=== PATIENT | male | born 1990 | race Caucasian/White ===

== ENCOUNTER 2018-10-10 19:25 | Emergency (ER) | payer MEDICAID, OTHER ==
[~2018-10-10] VITALS: Ht 180.3 cm; Wt 99.8 kg
--- OUTSIDE RECORDS SUMMARY | 2018-10-10 19:30 | XMS REPORT | Referral Summary ---
Author Author [facility] Organization [facility] Address Unknown Phone Unavailable Care Team Providers Care Vp Securities Name Role Phone [facility] PCP Unavailable Encounter AMAURY [id number] Date(s): 07/12/17 - 07/14/17 [facility] [address] [place] [address] Encounter Diagnosis Partial symptomatic epilepsy with complex partial seizures, not intractable, wit hout status epilepticus (Discharge Diagnosis) - 07/12/17 Dizziness (Discharge Diagnosis) - 07/12/17 Headache (Discharge Diagnosis) - 07/12/17 Fatigue (Discharge Diagnosis) - 07/12/17 Discharge Disposition: 01-Home or Self Care Attending Physician: Jesse Page MD Admitting Physician: Jesse Page MD Vital Signs Most recent to 1 oldest [Reference Range]: Temperature Oral 36.9 degC [35.8-37.3 degC] (07/14/17 12:06 PM) Peripheral Pulse 61 bpm Rate [60-100 bpm] (07/13/17 8:11 AM) Heart Rate Monitored 91 bpm [60-100 bpm] (07/14/17 12:06 PM) Respiratory Rate 20 br/min [14-20 br/min] (07/14/17 12:06 PM) Blood Pressure 147/73 mmHg [90-140/60-90 mmHg] *HI* (07/14/17 9:11 AM) SpO2 98 % (07/14/17 12:06 PM) Remote Telemetry Ongoing (07/14/17 9:11 AM) Problem List Condition Effective Dates Status Health Status Informant At risk for Active injury(Confirmed)1, 2 Headache(Confirmed) Resolved Partial symptomatic Active epilepsy with complex partial seizures, not intractable, without status epilepticus(Confirme d) Tobacco Active patient user(Confirmed) 1ongoing seizure care and eval 2Problem added automatically by system based on initiation of Risk for Injury Plan of Care Allergies, Adverse Reactions, Alerts Substance Reaction Severity Status fosphenytoin1 Medium Active 1Itching all over, "out of it" all night Medications Aleve 220 mg oral tablet 440 mg 2 tabs, Oral, qPM, 0 Refill(s) Start Date: 07/12/17 Status: Ordered Results Hematology Most recent to 1 oldest [Reference Range]: WBC [4.8-10.8 8.5 10*3/uL 10*3/uL] (07/13/17 7:07 AM) RBC [4.60-6.20] 5.66 (07/13/17 7:07 AM) Hgb [14.0-18.0 16.7 gm/dL gm/dL] (07/13/17 7:07 AM) Hct [42.0-52.0 %] 47.7 % (07/13/17 7:07 AM) MCV [82.0-99.0 fL] 84.3 fL (07/13/17 7:07 AM) MCH [27.0-32.0 pg] 29.5 pg (07/13/17 7:07 AM) MCHC [32.0-36.0 35.0 gm/dL gm/dL] (07/13/17 7:07 AM) RDW [11.5-14.5 %] 13.2 % (07/13/17 7:07 AM) Platelet [150-400 177 10*3/uL 10*3/uL] (07/13/17 7:07 AM) MPV [9.4-12.3 fL] 10.5 fL (07/13/17 7:07 AM) Immature 0.6 % Granulocytes (07/13/17 7:07 AM) [0.0-1.0 %] Neutrophils [51-75 46 % %] *LOW* (07/13/17 7:07 AM) Lymphocytes [20-46 33 % %] (07/13/17 7:07 AM) Monocytes [4-11 %] 9 % (07/13/17 7:07 AM) Eosinophils [0-4 %] 11 % *HI* (07/13/17 7:07 AM) Basophils [0-2 %] 1 % (07/13/17 7:07 AM) Neutro Absolute 3.89 [1.90-7.00] (07/13/17 7:07 AM) Lymph Absolute 2.82 [0.80-3.30] (07/13/17 7:07 AM) [place] Absolute 0.76 [0.30-1.00] (07/13/17 7:07 AM) Eos Absolute 0.95 [0.00-0.50] *HI* (07/13/17 7:07 AM) Baso Absolute 0.07 [0.00-0.20] (07/13/17 7:07 AM) Nucleated RBC 0.0 /100 WBC Automated [0 /100 (07/13/17 7:07 AM) WBC] Chemistry Most recent to 1 oldest [Reference Range]: Sodium Lvl [136-144 139 mEq/L mEq/L] (07/13/17 7:07 AM) Potassium Lvl 4.0 mEq/L [3.6-5.1 mEq/L] (07/13/17 7:07 AM) Chloride [99-109 106 mEq/L mEq/L] (07/13/17 7:07 AM) CO2 [22-32 mEq/L] 22 mEq/L (07/13/17 7:07 AM) AGAP [3-20 mEq/L] 11 mEq/L (07/13/17 7:07 AM) BUN [4-20 mg/dL] 10 mg/dL (07/13/17 7:07 AM) Glucose Lvl [70-100 111 mg/dL mg/dL] *HI* (07/13/17 7:07 AM) Creatinine Lvl 0.81 mg/dL [0.64-1.27 mg/dL] (07/13/17 7:07 AM) eGFR [>60 mL/min] >60 mL/min 1 (07/13/17 7:07 AM) Calcium Lvl 8.8 mg/dL [8.6-10.0 mg/dL] (07/13/17 7:07 AM) Albumin Lvl [3.5-4.8 3.6 gm/dL gm/dL] (07/13/17 7:07 AM) Total Protein 5.7 gm/dL [6.1-7.9 gm/dL] *LOW* (07/13/17 7:07 AM) Globulin [1.9-4.3 2.1 gm/dL gm/dL] (07/13/17 7:07 AM) ALT [17-63 U/L] 25 U/L (07/13/17 7:07 AM) AST [15-41 U/L] 19 U/L (07/13/17 7:07 AM) Alk Phos [26-104 69 U/L U/L] (07/13/17 7:07 AM) Bili Total [0.2-1.2 0.9 mg/dL 2 mg/dL] (07/13/17 7:07 AM) TSH [0.35-5.50 0.99 mcIU/mL mcIU/mL] (07/13/17 7:07 AM) 1Result Comment: Multiply eGFR results by 1.21 for race. 2Result Comment: Naproxen, specifically the metabolite O-desmethylnaproxen, may cause spurious elevation in Total Bilirubin levels. Immunizations Given and Recorded Vaccine Date Status Refusal Reason varicella virus vaccine 01/26/07 Given varicella virus vaccine 04/12/98 Given meningococcal conjugate vaccine 01/26/07 Given hepatitis A pediatric vaccine 01/26/07 Given tetanus/diphth/pertuss (Tdap) adult/adol 10/15/04 Recorded hepatitis B pediatric vaccine 07/19/96 Given hepatitis B pediatric vaccine 02/25/96 Given hepatitis B pediatric vaccine 01/20/96 Given poliovirus vaccine, inactivated 11/11/95 Given poliovirus vaccine, inactivated 04/17/93 Given poliovirus vaccine, inactivated 02/12/92 Given poliovirus vaccine, inactivated 91 Given measles/mumps/rubella virus vaccine 11/11/95 Given measles/mumps/rubella virus vaccine 01/10/93 Given diphtheria/pertussis, acel/tetanus ped 11/11/95 Given diphtheria/pertussis, acel/tetanus ped 04/18/93 Given diphtheria/pertussis, acel/tetanus ped 04/23/92 Given diphtheria/pertussis, acel/tetanus ped 02/12/92 Given diphtheria/pertussis, acel/tetanus ped 91 Given haemophilus b conjugate (HbOC) vaccine 04/18/93 Given haemophilus b conjugate (HbOC) vaccine 04/23/92 Given haemophilus b conjugate (HbOC) vaccine 02/12/92 Given haemophilus b conjugate (HbOC) vaccine 91 Given Procedures Procedure Date Related Diagnosis Body Site Status Surgery rt foot1 2009 Completed Tonsillectomy 1998 Completed 1"bone spur removal" Social History Social History Type Response Smoking Status Current every day smoker; Type: Cigarettes entered on: 05/11/14 Assessment and Plan No data available for this section
--- OUTSIDE RECORDS SUMMARY | 2018-10-10 19:30 | XMS REPORT | Referral Summary ---
Author Author [facility] Organization [facility] Address Unknown Phone Unavailable Care Team Providers Care High School Computer Science Teacher Name Role Phone No PCP, Pt States PCP Encounter VC Date(s): 11/09/17 - 11/10/17 [facility] [address] [place] [address] [phone] Encounter Diagnosis Hearing loss of right ear due to cerumen impaction (Discharge Diagnosis) - 11/10/17 Otitis externa of right ear (Discharge Diagnosis) - 11/10/17 Discharge Disposition: 01-Home or Self Care Attending Physician: Kemal Garcia MD Admitting Physician: Kemal Garcia MD Vital Signs Most recent to 1 oldest [Reference Range]: Temperature Oral 36.7 degC [35.8-37.3 degC] (11/09/17 11:17 PM) Peripheral Pulse 84 bpm Rate [60-100 bpm] (11/10/17 12:54 AM) Respiratory Rate 17 br/min [14-20 br/min] (11/10/17 12:54 AM) Blood Pressure 126/88 mmHg [90-140/60-90 mmHg] (11/10/17 12:54 AM) SpO2 98 % (11/10/17 12:54 AM) Problem List Condition Effective Dates Status Health Status Informant At risk for Active injury(Confirmed)1, 2 Headache(Confirmed) Resolved Partial symptomatic Active epilepsy with complex partial seizures, not intractable, without status epilepticus(Confirme d) Tobacco Active patient user(Confirmed) 1ongoing seizure care and eval 2Problem added automatically by system based on initiation of Risk for Injury Plan of Care Allergies, Adverse Reactions, Alerts No Known Allergies Medications Aleve 220 mg oral tablet 440 mg 2 tabs, Oral, qPM, 0 Refill(s) Start Date: 07/12/17 Status: Ordered Results No data available for this section Immunizations Given and Recorded Vaccine Date Status [...]
--- OUTSIDE RECORDS SUMMARY | 2018-10-10 19:31 | XMS REPORT ---
Author Author Augusto Corley Organization [facility] Address [address] [place] [address] Care Team Providers Care Maintenance Pipefitter Name Role Phone Augusto Corley Unavailable PROBLEMS Type Condition ICD9-CM Code [id number] Code Onset Dates Condition Status SNOMED Code Problem Periodic limb movements of sleep G47.61 Active 218167387 Problem CARE LEVEL 3 CARE3 Active 800666287 Problem Dietary counseling and surveillance Z71.3 Active 989553004 Problem Dietary counseling Z71.3 Active 608790755 Problem Obesity (BMI 30.0-34.9) E66.9 Active 818187112867481 Problem Needs smoking cessation education F17.200 Active 947359566 Problem Tobacco use Z72.0 Active 445354588 Problem Prehypertension R03.0 Active 147322642 ALLERGIES No Known Allergies ENCOUNTERS Encounter Location Date Diagnosis [address] [id number] Apr, Prehypertension R03.0 ; Needs smoking cessation education F17.200 ; Dietary counseling and surveillance Z71.3 and Seizure-like activity R56.[address] [id number] Apr, [address] [id number] Apr, [address] [id number] Apr, Syncope and collapse R55 [address] [id number] Mar, [address] [id number] Mar, [address] [id number] Mar, Syncope and collapse R55 ; Dietary counseling Z71.3 ; Tobacco use Z72.0 and Prehypertension R03.[address] [id number] Mar, [facility] [address], [place] [id number] Feb, Dietary counseling Z71.3 ; Periodic limb movements of sleep G47.61 ; Needs smoking cessation education F17.200 ; Onychomycosis B35.1 and Pre-hypertension R03.0 [facility] [address], [place] [id number] Jan, Dietary counseling Z71.3 ; Periodic limb movements of sleep G47.61 and Elevated blood pressure reading R03.0 IMMUNIZATIONS No Known Immunizations SOCIAL HISTORY Never Assessed REASON FOR VISIT f/u EEG/MRI, request no med student, Room 27 SB PLAN OF CARE Activity Details Follow Up prn Reason:null VITAL SIGNS Temperature 98.4 degrees Fahrenheit 2017-05-11 Weight 224 lbs 2017-05-11 Height 68.75 in 2017-05-11 BMI 33.32 kg/m2 2017-05-11 Heart Rate 89 /min 2017-05-11 Blood pressure systolic 130 mm Hg 2017-05-11 Blood pressure diastolic 74 mm Hg 2017-05-11 MEDICATIONS No Known Medications RESULTS No Results PROCEDURES No Known procedures INSTRUCTIONS MEDICATIONS ADMINISTERED No Known Medications MEDICAL (GENERAL) HISTORY Type Description Date Surgical History Bone spur removal-right foot Surgical History Tonsillectomy Surgical History Bilateral tympanostomies
--- OUTSIDE RECORDS SUMMARY | 2018-10-10 19:31 | XMS REPORT ---
Author Author Augusto Corley [facility] Address [address] [place] [address] Care Team Providers Care Mechanical Operator Name Role Phone Augusto Corley Unavailable PROBLEMS Type Condition ICD9-CM Code IVK48-AJ Code Onset Dates Condition Status SNOMED Code Problem CARE LEVEL 3 CARE3 Active 011780683 Problem Dietary counseling Z71.3 Active 361835389 Problem Tobacco use Z72.0 Active 482022693 Problem Needs smoking cessation education F17.200 Active 426645572 Problem Periodic limb movements of sleep G47.61 Active 549517589 Problem Prehypertension R03.0 Active 430836995 Problem Obesity (BMI 30.0-34.9) E66.9 Active 657457965453979 ALLERGIES No Information SOCIAL HISTORY Never Assessed PLAN OF CARE VITAL SIGNS MEDICATIONS Unknown Medications RESULTS No Results PROCEDURES No Known procedures IMMUNIZATIONS No Known Immunizations MEDICAL (GENERAL) HISTORY Type Description Date Surgical History Bone spur removal-right foot Surgical History Tonsillectomy Surgical History Bilateral tympanostomies
--- OUTSIDE RECORDS SUMMARY | 2018-10-10 19:31 | XMS REPORT ---
Author Author Augusto Corley Organization [facility] Address [address] [place] [address] Care Team Providers Care Nuclear Pharmacist Name Role Phone Augusto Corley Unavailable PROBLEMS Type Condition ICD9-CM Code OFK45-VB Code Onset Dates Condition Status SNOMED Code Problem CARE LEVEL 3 CARE3 Active 397069678 Problem Needs smoking cessation education F17.200 Active 386646034 Problem Periodic limb movements of sleep G47.61 Active 072534717 Problem Seasonal allergies J30.2 Active 102169423 Problem Dietary counseling and surveillance Z71.3 Active 719841281 Problem Prehypertension R03.0 Active 890181228 Problem Obesity (BMI 30.0-34.9) E66.9 Active 966565112788917 Problem Dietary counseling Z71.3 Active 641865468 Problem Tobacco use Z72.0 Active 255124807 ALLERGIES No Information ENCOUNTERS Encounter Location Date Diagnosis [address] [id number] Oct, [address] [id number] Oct, [address] [id number] Oct, [address] [id number] Oct, Seasonal allergies J30.[address] [id number] Oct, Dietary counseling Z71.3 ; Seasonal allergies J30.2 ; Impacted cerumen of right ear H61.21 and Tobacco use Z72.[address] [id number] July, [address] [id number] Apr, Prehypertension R03.0 ; Needs smoking cessation education F17.200 ; Dietary counseling and surveillance Z71.3 and Seizure-like activity R56.[address] [id number] 14 Apr, [address] [id number] Apr, [address] [id number] Apr, Syncope and collapse R55 [address] [id number] Mar, [address] [id number] Mar, [address] [id number] Mar, Syncope and collapse R55 ; Dietary counseling Z71.3 ; Tobacco use Z72.0 and Prehypertension R03.[address] [id number] Mar, [address] [id number] Feb, Dietary counseling Z71.3 ; Periodic limb movements of sleep G47.61 ; Needs smoking cessation education F17.200 ; Onychomycosis B35.1 and Pre-hypertension R03.[address] [id number] Jan, Dietary counseling Z71.3 ; Periodic limb movements of sleep G47.61 and Elevated blood pressure reading R03.0 IMMUNIZATIONS No Known Immunizations SOCIAL HISTORY Never Assessed REASON FOR VISIT PLAN OF CARE VITAL SIGNS MEDICATIONS Unknown Medications RESULTS No Results PROCEDURES No Known procedures INSTRUCTIONS MEDICATIONS ADMINISTERED No Known Medications MEDICAL (GENERAL) HISTORY Type Description Date Surgical History Bone spur removal-right foot Surgical History Tonsillectomy Surgical History Bilateral tympanostomies
--- OUTSIDE RECORDS SUMMARY | 2018-10-10 19:31 | XMS REPORT ---
Author Author Zena Olivier Organization [facility] Address [address] [place] [address] Care Team Providers Care Research And Evaluation Analyst Name Role Phone Zena Olivier Unavailable PROBLEMS Type Condition ICD9-CM Code LAN38-IA Code Onset Dates Condition Status SNOMED Code Problem Obesity (BMI 30.0-34.9) E66.9 Active 896491942513523 Problem Needs smoking cessation education F17.200 Active 650986188 Problem Periodic limb movements of sleep G47.61 Active 169569765 Problem CARE LEVEL 3 CARE3 Active 224755748 ALLERGIES No Information SOCIAL HISTORY Never Assessed PLAN OF CARE VITAL SIGNS MEDICATIONS No Known Medications RESULTS No Results PROCEDURES No Known procedures IMMUNIZATIONS No Known Immunizations MEDICAL (GENERAL) HISTORY Type Description Date Surgical History Bone spur removal-right foot Surgical History Tonsillectomy Surgical History Bilateral tympanostomies
--- OUTSIDE RECORDS SUMMARY | 2018-10-10 19:31 | XMS REPORT ---
Author Author Augusto Corley Organization [facility] Address [address] [place] [address] Care Team Providers Care Nicker Name Role Phone Augusto Corley Unavailable PROBLEMS Type Condition ICD9-CM Code CHS05-DX Code Onset Dates Condition Status SNOMED Code Problem CARE LEVEL 3 CARE3 Active 643090773 Problem Dietary counseling Z71.3 Active 156298988 Problem Tobacco use Z72.0 Active 440550922 Problem Needs smoking cessation education F17.200 Active 617485286 Problem Periodic limb movements of sleep G47.61 Active 820445526 Problem Prehypertension R03.0 Active 586208878 Problem Obesity (BMI 30.0-34.9) E66.9 Active 745185044250277 ALLERGIES No Information ENCOUNTERS Encounter Location Date Diagnosis [address] [id number] Apr, [address] [id number] Apr, [address] [id number] Apr, [address] [id number] Apr, Syncope and collapse R55 [address] [id number] Mar, [address] [id number] Mar, [address] [id number] Mar, Syncope and collapse R55 ; Dietary counseling Z71.3 ; Tobacco use Z72.0 and Prehypertension R03.[address] [id number] Mar, [address] [id number] Feb, Dietary counseling Z71.3 ; Periodic limb movements of sleep G47.61 ; Needs smoking cessation education F17.200 ; Onychomycosis B35.1 and Pre-hypertension R03.[address] [id number] Jan, Dietary counseling Z71.3 ; Periodic limb movements of sleep G47.61 and Elevated blood pressure reading R03.0 IMMUNIZATIONS No Known Immunizations SOCIAL HISTORY Never Assessed REASON FOR VISIT returned call--Patient Concern PLAN OF CARE VITAL SIGNS MEDICATIONS Unknown Medications RESULTS No Results PROCEDURES No Known procedures INSTRUCTIONS MEDICATIONS ADMINISTERED No Known Medications MEDICAL (GENERAL) HISTORY Type Description Date Surgical History Bone spur removal-right foot Surgical History Tonsillectomy Surgical History Bilateral tympanostomies
--- OUTSIDE RECORDS SUMMARY | 2018-10-10 19:31 | XMS REPORT ---
Author Author Augusto Corley Organization [facility] Address [address] [place] [address] Care Team Providers Care Child Adolescent Psychiatrist Name Role Phone Augusto Corley Unavailable PROBLEMS Type Condition ICD9-CM Code MQJ79-FO Code Onset Dates Condition Status SNOMED Code Problem CARE LEVEL 3 CARE3 Active 316389148 Problem Needs smoking cessation education F17.200 Active 609968883 Problem Periodic limb movements of sleep G47.61 Active 579566233 Problem Seasonal allergies J30.2 Active 392728559 Problem Dietary counseling and surveillance Z71.3 Active 177253601 Problem Prehypertension R03.0 Active 073017899 Problem Obesity (BMI 30.0-34.9) E66.9 Active 187415886049359 Problem Dietary counseling Z71.3 Active 876707456 Problem Tobacco use Z72.0 Active 702427355 ALLERGIES No Information ENCOUNTERS Encounter Location Date Diagnosis [address] [id number] Oct, [address] [id number] Oct, Seasonal allergies J30.[address] [id number] Oct, Dietary counseling Z71.3 ; Seasonal allergies J30.2 ; Impacted cerumen of right ear H61.21 and Tobacco use Z72.[address] [id number] July, [address] [id number] Apr, Prehypertension R03.0 ; Needs smoking cessation education F17.200 ; Dietary counseling and surveillance Z71.3 and Seizure-like activity R56.[address] [id number] Apr, [address] [id number] Apr, [address] [id number] Apr, Syncope and collapse R55 [address] [id number] Mar, [address] [id number] Mar, [address] [id number] Mar, Syncope and collapse R55 ; Dietary counseling Z71.3 ; Tobacco use Z72.0 and Prehypertension R03.[address] [id number] Mar, [address] [id number] Feb, Dietary counseling Z71.3 ; Periodic limb movements of sleep G47.61 ; Needs smoking cessation education F17.200 ; Onychomycosis B35.1 and Pre-hypertension R03.[address] [id number] Jan, Dietary counseling Z71.3 ; Periodic limb movements of sleep G47.61 and Elevated blood pressure reading R03.0 IMMUNIZATIONS No Known Immunizations SOCIAL HISTORY Never Assessed REASON FOR VISIT Pharmacy clarification PLAN OF CARE VITAL SIGNS MEDICATIONS Medication Instructions Dosage Frequency Start Date End Date Duration Status Flonase 50 MCG/ACT Nasally daily 1 puff in each nostril 24h Oct, 30 day(s) Active RESULTS No Results PROCEDURES No Known procedures INSTRUCTIONS MEDICATIONS ADMINISTERED No Known Medications MEDICAL (GENERAL) HISTORY Type Description Date Surgical History Bone spur removal-right foot Surgical History Tonsillectomy Surgical History Bilateral tympanostomies
--- OUTSIDE RECORDS SUMMARY | 2018-10-10 19:31 | XMS REPORT ---
Author Author Lia Gaspar Organization [facility] Address [address] [place] [address] Care Team Providers Care Taping Machine Operator Name Role Phone Lia Gaspar Unavailable PROBLEMS Type Condition ICD9-CM Code QBU50-GZ Code Onset Dates Condition Status SNOMED Code Problem CARE LEVEL 3 CARE3 Active 909500940 Problem Needs smoking cessation education F17.200 Active 013453103 Problem Periodic limb movements of sleep G47.61 Active 341928765 Problem Seasonal allergies J30.2 Active 292066181 Problem Dietary counseling and surveillance Z71.3 Active 844318793 Problem Prehypertension R03.0 Active 386149891 Problem Obesity (BMI 30.0-34.9) E66.9 Active 534829304139990 Problem Dietary counseling Z71.3 Active 094571262 Problem Tobacco use Z72.0 Active 552596476 ALLERGIES No Known Allergies ENCOUNTERS Encounter Location Date Diagnosis [address] [id number] Oct, [address] [id number] Oct, [address] [id number] Oct, [address] [id number] Oct, Seasonal allergies J30.[address] [id number] Oct, Dietary counseling Z71.3 ; Seasonal allergies J30.2 ; Impacted cerumen of right ear H61.21 and Tobacco use Z72.[address] [id number] July, [address] [id number] Apr, Prehypertension R03.0 ; Needs smoking cessation education F17.200 ; Dietary counseling and surveillance Z71.3 and Seizure-like activity R56.[address] [id number] 14 Apr, [address] [id number] Apr, [address] [id number] 07 Apr, 2017 Syncope and collapse R55 [address] [id number] Mar, [address] [id number] Mar, [address] [id number] Mar, Syncope and collapse R55 ; Dietary counseling Z71.3 ; Tobacco use Z72.0 and Prehypertension R03.[address] [id number] Mar, [address] [id number] Feb, Dietary counseling Z71.3 ; Periodic limb movements of sleep G47.61 ; Needs smoking cessation education F17.200 ; Onychomycosis B35.1 and Pre-hypertension R03.[address] [id number] Jan, Dietary counseling Z71.3 ; Periodic limb movements of sleep G47.61 and Elevated blood pressure reading R03.0 IMMUNIZATIONS No Known Immunizations SOCIAL HISTORY Never Assessed REASON FOR VISIT cough and congestion, ATR RMA [id number] PLAN OF CARE Activity Details Follow Up 2 Weeks Reason:null VITAL SIGNS Temperature 98.0 degrees Fahrenheit 2017-11-09 Weight 224.3 lbs 2017-11-09 Height 68.75 in 2017-11-09 BMI 33.36 kg/m2 2017-11-09 Heart Rate 77 /min 2017-11-09 Blood pressure systolic 131 mm Hg 2017-11-09 Blood pressure diastolic 72 mm Hg 2017-11-09 MEDICATIONS Medication Instructions Dosage Frequency Start Date End Date Duration Status Debrox 6.5 % Otic Twice a day 5 drops into affected ear 12h Oct, Nov, 4 day(s) Active Flonase 50 MCG/ACT Nasally prn 1 puff in each nostril Oct, 1 month supply Active Elena 60 MG Orally Twice a day 1 tablet as needed 12h Oct, Feb, 1 month Active RESULTS No Results PROCEDURES No Known procedures INSTRUCTIONS MEDICATIONS ADMINISTERED No Known Medications MEDICAL (GENERAL) HISTORY Type Description Date Surgical History Bone spur removal-right foot Surgical History Tonsillectomy Surgical History Bilateral tympanostomies
--- OUTSIDE RECORDS SUMMARY | 2018-10-10 19:31 | XMS REPORT ---
Author Author Augusto Corley Organization [facility] Address [address] [place] [address] Care Team Providers Care Oxide Furnace Tender Name Role Phone Augusto Corley Unavailable PROBLEMS Type Condition ICD9-CM Code [id number] Code Onset Dates Condition Status SNOMED Code Problem CARE LEVEL 3 CARE3 Active 042036034 Problem Needs smoking cessation education F17.200 Active 847684201 Problem Periodic limb movements of sleep G47.61 Active 259028668 Problem Seasonal allergies J30.2 Active 597162800 Problem Dietary counseling and surveillance Z71.3 Active 551889448 Problem Prehypertension R03.0 Active 659687295 Problem Obesity (BMI 30.0-34.9) E66.9 Active 175828469767116 Problem Dietary counseling Z71.3 Active 550841003 Problem Tobacco use Z72.0 Active 468837772 ALLERGIES No Information ENCOUNTERS Encounter Location Date Diagnosis [address] [id number] Oct, [address] [id number] Oct, [address] [id number] Oct, [address] [id number] Oct, Seasonal allergies J30.[address] [id number] Oct, Dietary counseling Z71.3 ; Seasonal allergies J30.2 ; Impacted cerumen of right ear H61.21 and Tobacco use Z72.[address] [id number] July, [address] [id number] Apr, Prehypertension R03.0 ; Needs smoking cessation education F17.200 ; Dietary counseling and surveillance Z71.3 and Seizure-like activity R56.[address] [id number] 14 Apr, [address] [id number] Apr, [address] [id number] Apr, Syncope and collapse R55 [address] [id number] Mar, [address] [id number] Mar, [address] [id number] Mar, Syncope and collapse R55 ; Dietary counseling Z71.3 ; Tobacco use Z72.0 and Prehypertension R03.[address] [id number] Mar, [address] [id number] Feb, Dietary counseling Z71.3 ; Periodic limb movements of sleep G47.61 ; Needs smoking cessation education F17.200 ; Onychomycosis B35.1 and Pre-hypertension R03.[address] [id number] Jan, Dietary counseling Z71.3 ; Periodic limb movements of sleep G47.61 and Elevated blood pressure reading R03.0 IMMUNIZATIONS No Known Immunizations SOCIAL HISTORY Never Assessed REASON FOR VISIT PA-needed PLAN OF CARE VITAL SIGNS MEDICATIONS Medication Instructions Dosage Frequency Start Date End Date Duration Status Cortisporin 3.5-72966-7 Otic Three times a day 4 drops into affected ear 8h Nov, 5 day(s) Active RESULTS No Results PROCEDURES No Known procedures INSTRUCTIONS MEDICATIONS ADMINISTERED No Known Medications MEDICAL (GENERAL) HISTORY Type Description Date Surgical History Bone spur removal-right foot Surgical History Tonsillectomy Surgical History Bilateral tympanostomies
--- OUTSIDE RECORDS SUMMARY | 2018-10-10 19:31 | XMS REPORT ---
Author Author Lia Gaspar Organization [facility] Address [address] [place] [address] Care Team Providers Care Room Service Food Service Attendant Name Role Phone Lia Gaspar Unavailable PROBLEMS Type Condition ICD9-CM Code [id number]-RP Code Onset Dates Condition Status SNOMED Code Problem CARE LEVEL 3 CARE3 Active 632948366 Problem Needs smoking cessation education F17.200 Active 798352642 Problem Periodic limb movements of sleep G47.61 Active 617336885 Problem Seasonal allergies J30.2 Active 617669639 Problem Dietary counseling and surveillance Z71.3 Active 505072623 Problem Prehypertension R03.0 Active 447801762 Problem Obesity (BMI 30.0-34.9) E66.9 Active 583381570305828 Problem Dietary counseling Z71.3 Active 184555594 Problem Tobacco use Z72.0 Active 409558654 ALLERGIES No Information ENCOUNTERS Encounter Location Date Diagnosis [address] [id number] Oct, [address] [id number] Oct, [address] [id number] Oct, [address] [id number] Oct, Seasonal allergies J30.[address] [id number] Oct, Dietary counseling Z71.3 ; Seasonal allergies J30.2 ; Impacted cerumen of right ear H61.21 and Tobacco use Z72.[address] [id number] July, [address] [id number] Apr, Prehypertension R03.0 ; Needs smoking cessation education F17.200 ; Dietary counseling and surveillance Z71.3 and Seizure-like activity R56.[address] [id number] 14 Apr, [address] [id number] Apr, [address] [id number] 07 Apr, 2017 Syncope and collapse R55 [address] [id number] Mar, [address] [id number] Mar, [address] [id number] Mar, Syncope and collapse R55 ; Dietary counseling Z71.3 ; Tobacco use Z72.0 and Prehypertension R03.[address] [id number] Mar, [address] [id number] Feb, Dietary counseling Z71.3 ; Periodic limb movements of sleep G47.61 ; Needs smoking cessation education F17.200 ; Onychomycosis B35.1 and Pre-hypertension R03.[address] [id number] Jan, Dietary counseling Z71.3 ; Periodic limb movements of sleep G47.61 and Elevated blood pressure reading R03.0 IMMUNIZATIONS No Known Immunizations SOCIAL HISTORY Never Assessed REASON FOR VISIT Ear Medication Scrip PLAN OF CARE VITAL SIGNS MEDICATIONS Medication Instructions Dosage Frequency Start Date End Date Duration Status Cortisporin Otic 1%-0.35%-1000 units/ml into each affected ear twice a day 2-5 drops 12h Oct, Nov, 10 day(s) Active RESULTS No Results PROCEDURES No Known procedures INSTRUCTIONS MEDICATIONS ADMINISTERED No Known Medications MEDICAL (GENERAL) HISTORY Type Description Date Surgical History Bone spur removal-right foot Surgical History Tonsillectomy Surgical History Bilateral tympanostomies
--- OUTSIDE RECORDS SUMMARY | 2018-10-10 19:31 | XMS REPORT ---
Author Author Evangelina Skinner [facility] Address [address] [place] [address] Care Team Providers Care Tetryl Nitrator Operator Name Role Phone Evangelina Skinner Unavailable PROBLEMS Type Condition ICD9-CM Code [id number] Code Onset Dates Condition Status SNOMED Code Problem CARE LEVEL 3 CARE3 Active 638026874 Problem Needs smoking cessation education F17.200 Active 039257450 Problem Periodic limb movements of sleep G47.61 Active 987281295 Problem Seasonal allergies J30.2 Active 794748804 Problem Dietary counseling and surveillance Z71.3 Active 524281130 Problem Prehypertension R03.0 Active 672356621 Problem Obesity (BMI 30.0-34.9) E66.9 Active 899826970521315 Problem Dietary counseling Z71.3 Active 378066222 Problem Tobacco use Z72.0 Active 235797457 ALLERGIES No Known Allergies ENCOUNTERS Encounter Location Date Diagnosis [address] [id number] Nov, Injury of right ear, initial encounter S09.91XA [address] [id number] Oct, [address] [id number] Oct, [address] [id number] Oct, [address] [id number] Oct, Seasonal allergies J30.[address] [id number] Oct, Dietary counseling Z71.3 ; Seasonal allergies J30.2 ; Impacted cerumen of right ear H61.21 and Tobacco use Z72.[address] [id number] July, [address] [id number] Apr, Prehypertension R03.0 ; Needs smoking cessation education F17.200 ; Dietary counseling and surveillance Z71.3 and Seizure-like activity R56.[address] [id number] 14 Apr, [address] [id number] Apr, [address] [id number] Apr, Syncope and collapse R55 [address] [id number] Mar, [address] [id number] Mar, [address] [id number] Mar, Syncope and collapse R55 ; Dietary counseling Z71.3 ; Tobacco use Z72.0 and Prehypertension R03.[address] [id number] Mar, [address] [id number] Feb, Dietary counseling Z71.3 ; Periodic limb movements of sleep G47.61 ; Needs smoking cessation education F17.200 ; Onychomycosis B35.1 and Pre-hypertension R03.[address] [id number] Jan, Dietary counseling Z71.3 ; Periodic limb movements of sleep G47.61 and Elevated blood pressure reading R03.0 IMMUNIZATIONS No Known Immunizations SOCIAL HISTORY Never Assessed REASON FOR VISIT FU for ear Had ears lavaged a week or so ago. Developed bleeding from ear. [facility] nt to [facility] and they said his eardrum was ruptured. Can't hear since that time . Hasn't noticed anymore drainage. ER gave meds that he started taking last annelise Don RN Room 21, Smoking education given. PLAN OF CARE Activity Details Follow Up prn, 4 Weeks Reason:null VITAL SIGNS Temperature 98.2 degrees Fahrenheit 2017-11-22 Weight 224.6 lbs 2017-11-22 Height 68.75 in 2017-11-22 BMI 33.41 kg/m2 2017-11-22 Heart Rate 81 /min 2017-11-22 Blood pressure systolic 130 mm Hg 2017-11-22 Blood pressure diastolic 78 mm Hg 2017-11-22 MEDICATIONS Medication Instructions Dosage Frequency Start Date End Date Duration Status Amoxicillin 500 MG Orally every 12 hrs 1 tablet 12h Nov, 20 Nov, 2017 10 day(s) Active Cortisporin 3.5-69369-0 Otic Three times a day 4 drops into affected ear 8h Nov, 5 day(s) Unknown Cortisporin Otic 1%-0.35%-1000 units/ml into each affected ear twice a day 2-5 drops 12h Oct, 10 Nov, 2017 10 day(s) Active Ciloxan 0.3 % Ophthalmic Twice a day 4-5 gtts in afftected ear twice a day 12h Active Elena 60 MG Orally Twice a day 1 tablet as needed 12h Oct, Feb, 1 month Not-Taking Flonase 50 MCG/ACT Nasally daily 1 puff in each nostril 24h Oct, 30 day(s) Not-Taking RESULTS No Results PROCEDURES No Known procedures INSTRUCTIONS MEDICATIONS ADMINISTERED No Known Medications MEDICAL (GENERAL) HISTORY Type Description Date Surgical History Bone spur removal-right foot Surgical History Tonsillectomy Surgical History Bilateral tympanostomies
--- OUTSIDE RECORDS SUMMARY | 2018-10-10 19:31 | XMS REPORT ---
Author Author Zena Olivier Organization [facility] Address [address] [place] [address] Care Team Providers Care Business Development Officer Name Role Phone SoyMerrittZena Unavailable PROBLEMS Type Condition ICD9-CM Code [id number] Code Onset Dates Condition Status SNOMED Code Problem Obesity (BMI 30.0-34.9) E66.9 Active 854877838070923 Problem Needs smoking cessation education F17.200 Active 889874070 Problem Periodic limb movements of sleep G47.61 Active 738109415 ALLERGIES No Known Allergies SOCIAL HISTORY Never Assessed PLAN OF CARE Activity Details Follow Up 2-4 Weeks Reason:null VITAL SIGNS Temperature 97.2 degrees Fahrenheit 2017-02-01 Weight 227.0 lbs 2017-02-01 Height 68.75 in 2017-02-01 BMI 33.76 kg/m2 2017-02-01 Heart Rate 80 /min 2017-02-01 MEDICATIONS Unknown Medications RESULTS No Results PROCEDURES No Known procedures IMMUNIZATIONS No Known Immunizations MEDICAL (GENERAL) HISTORY Type Description Date Surgical History Bone spur removal-right foot Surgical History Tonsillectomy Surgical History Bilateral tympanostomies
--- OUTSIDE RECORDS SUMMARY | 2018-10-10 19:32 | XMS REPORT ---
Author Author Augusto Corley Organization [facility] Address [address] [place] [address] Care Team Providers Care Topper Press Operator Name Role Phone Augusto Corley Unavailable PROBLEMS Type Condition ICD9-CM Code JAQ15-UV Code Onset Dates Condition Status SNOMED Code Problem Periodic limb movements of sleep G47.61 Active 566067357 Problem CARE LEVEL 3 CARE3 Active 497814879 Problem Dietary counseling and surveillance Z71.3 Active 687415408 Problem Dietary counseling Z71.3 Active 900872367 Problem Obesity (BMI 30.0-34.9) E66.9 Active 231258552047659 Problem Needs smoking cessation education F17.200 Active 283397988 Problem Tobacco use Z72.0 Active 082765524 Problem Prehypertension R03.0 Active 980877162 ALLERGIES No Information ENCOUNTERS Encounter Location Date Diagnosis [address] [id number] July, [address] [id number] Apr, Prehypertension R03.0 ; Needs smoking cessation education F17.200 ; Dietary counseling and surveillance Z71.3 and Seizure-like activity R56.[address] [id number] Apr, [address] [id number] Apr, [address] [id number] Apr, Syncope and collapse R55 [address] [id number] Mar, [address] [id number] Mar, [address] [id number] Mar, Syncope and collapse R55 ; Dietary counseling Z71.3 ; Tobacco use Z72.0 and Prehypertension R03.[address] [id number] Mar, [address] [id number] Feb, Dietary counseling Z71.3 ; Periodic limb movements of sleep G47.61 ; Needs smoking cessation education F17.200 ; Onychomycosis B35.1 and Pre-hypertension R03.[address] [id number] Jan, Dietary counseling Z71.3 ; Periodic limb movements of sleep G47.61 and Elevated blood pressure reading R03.0 IMMUNIZATIONS No Known Immunizations SOCIAL HISTORY Never Assessed REASON FOR VISIT Waiting for call back PLAN OF CARE VITAL SIGNS MEDICATIONS Unknown Medications RESULTS No Results PROCEDURES No Known procedures INSTRUCTIONS MEDICATIONS ADMINISTERED No Known Medications MEDICAL (GENERAL) HISTORY Type Description Date Surgical History Bone spur removal-right foot Surgical History Tonsillectomy Surgical History Bilateral tympanostomies
--- OUTSIDE RECORDS SUMMARY | 2018-10-10 19:32 | XMS REPORT ---
Author Author Augusto Corley Organization [facility] Address [address] [place] [address] Care Team Providers Care Outside Industrial Sales Representative Name Role Phone Augusto Corley Unavailable PROBLEMS Type Condition ICD9-CM Code PIH11-FP Code Onset Dates Condition Status SNOMED Code Problem CARE LEVEL 3 CARE3 Active 448054811 Problem Dietary counseling Z71.3 Active 735562300 Problem Tobacco use Z72.0 Active 055464714 Problem Needs smoking cessation education F17.200 Active 446373655 Problem Periodic limb movements of sleep G47.61 Active 814329647 Problem Prehypertension R03.0 Active 554548224 Problem Obesity (BMI 30.0-34.9) E66.9 Active 595212065736261 ALLERGIES No Information ENCOUNTERS Encounter Location Date Diagnosis [address] [id number] Apr, [address] [id number] Apr, Syncope and collapse R55 [address] [id number] Mar, [address] [id number] Mar, [address] [id number] Mar, Syncope and collapse R55 ; Dietary counseling Z71.3 ; Tobacco use Z72.0 and Prehypertension R03.[address] [id number] Mar, [address] [id number] Feb, Dietary counseling Z71.3 ; Periodic limb movements of sleep G47.61 ; Needs smoking cessation education F17.200 ; Onychomycosis B35.1 and Pre-hypertension R03.[address] [id number] Jan, Dietary counseling Z71.3 ; Periodic limb movements of sleep G47.61 and Elevated blood pressure reading R03.0 IMMUNIZATIONS No Known Immunizations SOCIAL HISTORY Never Assessed REASON FOR VISIT needing orders PLAN OF CARE VITAL SIGNS MEDICATIONS Unknown Medications RESULTS No Results PROCEDURES No Known procedures INSTRUCTIONS MEDICATIONS ADMINISTERED No Known Medications MEDICAL (GENERAL) HISTORY Type Description Date Surgical History Bone spur removal-right foot Surgical History Tonsillectomy Surgical History Bilateral tympanostomies
--- OUTSIDE RECORDS SUMMARY | 2018-10-10 19:32 | XMS REPORT | Continuity of Care Document ---
Author Organization Unknown Address Unknown Phone Unavailable Allergies Active Description Code Type Severity Reaction Onset Reported/Identified Relationship to Patient Clinical Status Yes No Known Drug Allergies Drug Allergy Unknown N/A 03/21/2010 Yes No Known Allergies No Known Allergies Drug Allergy Unknown N/A 09/22/2015 Yes fosphenytoin NKMA Medium N/A 07/12/2017 Yes No Known Allergies NKMA N/A N/A 11/09/2017 Yes No Known Allergies NKMA N/A N/A 11/09/2017 Medications Medication Packaging Start Date Stop Date Route Dosage Sig naproxen(Aleve 220 mg oral tablet) 2 tabs 07/12/2017 Oral 440 mg 440 mg=2 tabs, Oral, qPM, 0 Refill(s) LORazepam(Ativan) 0.5 mL 07/12/2017 07/14/2017 IV Push 1 mg 1 mg=0.5 mL, IV Push, q4hr, PRN: Seizure naproxen(naproxen) 2 tabs 07/12/2017 07/12/2017 Oral 500 mg 500 mg=2 tabs, Oral, qPM nicotine(nicotine 21 mg/24 hr transdermal film, extended release) 1 patches 07/12/2017 07/14/2017 TransDermal 1 patches, TransDermal, Daily naproxen(naproxen) 2 tabs 07/12/2017 07/14/2017 Oral 500 mg 500 mg=2 tabs, Oral, BID, PRN: Pain Mild (1-3) ciprofloxacin-dexamethasone otic(Ciprodex 0.3%-0.1% otic suspension) 4 drops 11/10/2017 11/11/2017 Ear-Both 4 drops, Ear-Both, BID, 7.5 mL, 0 Refill(s) fluticasone nasal(Flonase 50 mcg/inh nasal spray) 1 sprays 12/02/2017 Nasal 1 sprays, Nasal, Daily, 1 [place] to Each nostril BID, 1 Each, 1 Refill(s) ibuprofen(ibuprofen) 04/18/2018 0 Refill(s) ciprofloxacin-dexamethasone otic(Ciprodex 0.3%-0.1% otic suspension) 5 drops 04/18/2018 04/28/2018 Ear-Right 5 drops, Ear-Right, BID, for 10 days, 7.5 mL, 0 Refill(s) PERCOCET ORAL 05/09/2018 05/16/2018 40 1 TAB Q4H OR 2 TABS Q6H Problems Date Dx Coded Attending Type Code Diagnosis Diagnosed By 04/01/2017 Johanne CARVAJAL, Sage Beckman D72.829 ELEVATED WHITE BLOOD CELL COUNT, UNSPECIFIED 04/01/2017 Sage Whiting MD F17.200 NICOTINE DEPENDENCE, UNSPECIFIED, UNCOMPLICATED 04/01/2017 Sage Whiting MD I10 ESSENTIAL (PRIMARY) HYPERTENSION 04/01/2017 Sage Whiting MD R40.2412 JERRY COMA SCALE SCORE 13-15, EMR 04/01/2017 Sage Whiting MD R55 SYNCOPE AND COLLAPSE 04/01/2017 Sage Whiting MD S06.5X9A TRAUM SUBDR HEM W LOC OF UNSP DURATION, INIT 04/01/2017 Sage Whiting MD W18.39XA OTHER FALL ON SAME LEVEL, INITIAL ENCOUNTER 04/05/2017 Oxana CARVAJAL, Maria Eugenia Díaz R55 SYNCOPE AND COLLAPSE 04/23/2017 Oxana CARVAJAL, Maria Eugenia Forbes5 SYNCOPE AND COLLAPSE 04/23/2017 Oxana CARVAJAL, Maria Eugenia Díaz R55 SYNCOPE AND COLLAPSE 04/23/2017 Oxana CARVAJAL, Maria Eugenia Forbes5 SYNCOPE AND COLLAPSE 07/15/2017 Page Alan Final F17.210 Nicotine dependence, cigarettes, uncomplicated 07/15/2017 Page Alan Final 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 07/15/2017 Page Alan Final R53.83 Other fatigue 07/15/2017 Page Alan Final R55 Syncope and collapse 07/15/2017 Page Alan Final 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 11/11/2017 Garcia Curt Final F17.210 Nicotine dependence, cigarettes, uncomplicated 11/11/2017 Garcia Curt Final 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 11/11/2017 Garcia Curt Final H60.91 Unspecified otitis externa, right ear 11/11/2017 Garcia Curt Final H61.21 Impacted cerumen, right ear 11/11/2017 Garcia Kemal Reason H92.01 Otalgia, right ear 11/11/2017 Radha, Kemal Final Z90.89 Acquired absence of other organs 11/23/2017 Kali Ricardo Final H60.391 Other infective otitis externa, right ear 11/23/2017 Kali Ricardo Final H61.21 Impacted cerumen, right ear 12/06/2017 Nidia Greer Final H68.013 Acute Eustachian salpingitis, bilateral 12/29/2017 Lenard Pandey Final H69.83 Other specified disorders of Eustachian tube, bilateral 12/29/2017 Ave Borden Final H65.23 Chronic serous otitis media, bilateral 01/02/2018 Nidia Greer Final H68.023 Chronic Eustachian salpingitis, bilateral 01/12/2018 Sadie Martínez Final H68.013 Acute Eustachian salpingitis, bilateral 03/31/2018 Chelsea Cleaning MD M25.561 PAIN IN RIGHT KNEE 04/13/2018 Chelsea Cleaning MD M25.561 PAIN IN RIGHT KNEE 04/13/2018 Chelsea Cleaning MD M25.561 PAIN IN RIGHT KNEE Procedures Code Description [place] [address] Removal impacted cerumen requiring instrumentation, unilateral. 11/23/2017 28956 Office or other outpatient visit for the evaluation and management of a new patient, which requires these 3 mcconnell components: A detailed history; A detailed examination; Medical decision making of low c 11/23/2017 85176 Pure tone audiometry (threshold); air and bone 12/02/2017 88749 Tympanometry (impedance testing).. 12/02/2017 69423 Office or other outpatient visit for the evaluation and management of an established patient, which requires at least 2 of these 3 mcconnell components: A detailed history; A detailed examination; Medical d 12/28/2017 12315 Tympanometry (impedance testing).. 12/28/2017 31429 Tympanostomy (requiring insertion of ventilating tube), local or topical anesthesia.. 12/29/2017 34369 Office or other outpatient visit for the evaluation and management of an established patient, which requires at least 2 of these 3 mcconnell components: An expanded problem focused history; An expanded prob 12/29/2017 44924 Pure tone audiometry (threshold); air and bone 01/12/2018 81156 Tympanometry (impedance testing).. 01/12/2018 Results Test Result Range CHEM/HEM PROFILE-BEDSIDE - 09/03/12 21:57 POTASSIUM 3.7 mmol/L 3.5-5.3 METHOD Bedside ANION GAP 21 mmol/L 10-20 METHOD Bedside GLUCOSE 100 mg/dL 70-99 BLOOD UREA NITROGEN 6 mg/dL 7-20 CREATININE 0.9 mg/dL 0.8-1.3 HEMOGLOBIN 21.4 gm/dL 14.0-18.0 HEMATOCRIT 63.0 % 40.0-54.0 SODIUM 142 mmol/L 135-148 CHLORIDE 104 mmol/L 98-110 CARBON DIOXIDE 21 mmol/L 21-32 CALCIUM IONIZED 4.6 mg/dL 4.5-5.3 URINALYSIS, ROUTINE - 09/03/12 22:23 UA LEUKOCYTE ESTERASE DIPSTICK NEGATIVE NEGATIVE UA NITRITE DIPSTICK NEGATIVE NEGATIVE UA PROTEIN DIPSTICK TRACE NEGATIVE UA GLUCOSE DIPSTICK NEGATIVE NEGATIVE UA KETONE DIPSTICK NEGATIVE NEGATIVE UA UROBILINOGEN DIPSTICK NORMAL NORMAL UA BILIRUBIN DIPSTICK POSITIVE NEGATIVE UA BLOOD DIPSTICK NEGATIVE NEGATIVE UA COMMENT UA SPECIFIC GRAVITY 1.025 1.015-1.025 UR PH 5.0 5.0-7.0 UR DRUGS OF ABUSE SCREEN - 09/03/12 22:23 UR AMPHETAMINES SCREEN NEG (<1000 ng/mL) NEGATIVE UR BARBITURATE SCREEN NEG (< 200 ng/mL) NEGATIVE DRUGS OF ABUSE SCREEN COMMENT UR OPIATES SCREEN NEG (< 300 ng/mL) NEGATIVE UR PHENCYCLIDINE (PCP) SCREEN NEG (< 25 ng/mL) NEGATIVE UR CANNABINOIDS (THC) SCREEN NEG (< 50 ng/mL) NEGATIVE UR COCAINE METABOLITE SCREEN NEG (< 300 ng/mL) NEGATIVE UR METHADONE SCREEN NEG (< 300 ng/mL) NEGATIVE UR BENZODIAZEPINE SCREEN NEG (< 200 ng/mL) NEGATIVE UA MICROSCOPIC - 09/03/12 22:23 UA AMORPHOUS SEDIMENT 1+ UA BACTERIA 1+ NEGATIVE UA EPITHELIAL CELLS 2+ epi/hpf 0 - 1+ UA MUCUS 4+ NEG TO 1+ UA RBC 0-3 rbc/hpf 0 - 3 UA VOLUME FOR EXAM 12.0 mL (12mL STD) UA WBC 2-5 wbc/hpf 0 - 5 URINALYSIS, ROUTINE - 10/29/15 03:05 UA LEUKOCYTE ESTERASE DIPSTICK NEGATIVE NEGATIVE UA NITRITE DIPSTICK NEGATIVE NEGATIVE UA PROTEIN DIPSTICK NEGATIVE NEGATIVE UA GLUCOSE DIPSTICK NEGATIVE NEGATIVE UA KETONE DIPSTICK NEGATIVE NEGATIVE UA UROBILINOGEN DIPSTICK NORMAL NORMAL UA BILIRUBIN DIPSTICK NEGATIVE NEGATIVE UA BLOOD DIPSTICK NEGATIVE NEGATIVE UA SPECIFIC GRAVITY 1.025 1.015-1.025 UR PH 6.0 5.0-7.0 CBC W/DIFF - 10/29/15 03:30 BASOPHIL # 0.1 k/cumm 0.0-0.2 BASOPHIL % 1 % 0-1 EOSINOPHIL # 1.1 k/cumm 0.1-0.5 EOSINOPHIL % 9 % 2-4 GRANULOCYTE # 5.9 k/cumm 2.0-9.0 GRANULOCYTE % 49 % 50-75 LYMPHOCYTE # 4.2 k/cumm 1.0-4.0 LYMPHOCYTE % 35 % 20-30 MEAN CELL HGB 28.9 pg 27.0-33.0 MEAN CELL HGB CONCENTRATION 35.2 g/dL 32.0-37.0 MEAN CELL VOLUME 82.3 fl 80.0-100.0 MONOCYTE # 0.8 k/cumm 0.1-1.0 MONOCYTE % 7 % 4-6 RED BLOOD CELL 5.70 m/cumm 4.00-6.00 RED CELL DISTRIBUTION WIDTH 13.4 % 11.0-15.6 WHITE BLOOD CELL 12.0 k/cumm 5.0-10.0 HEMOGLOBIN 16.5 gm/dL 14.0-18.0 HEMATOCRIT 46.9 % 40.0-54.0 PLATELET COUNT 193 k/cumm 150-450 METABOLIC PANEL, COMPREHN - 10/29/15 03:30 POTASSIUM 3.7 mmol/L 3.5-5.3 EST GFR (MDRD) > 60 mL/min > 59 ANION GAP 8 mmol/L 5-15 EST CrCl (CG) > 60 mL/min > 59 GLUCOSE 92 mg/dL 70-99 CALCIUM 8.6 mg/dL 8.5-10.1 BLOOD UREA NITROGEN 11 mg/dL 7-20 CREATININE 0.9 mg/dL 0.7-1.3 SODIUM 140 mmol/L 135-148 CHLORIDE 105 mmol/L 98-110 AST/SGOT 18 Units/L 10-37 ALT/SGPT 42 Units/L < 66 CARBON DIOXIDE 27 mmol/L 21-32 TOTAL PROTEIN 7.1 gm/dL 6.4-8.2 ALBUMIN 3.8 gm/dL 3.4-5.0 BILI TOTAL 0.5 mg/dL 0.0-1.0 ALKALINE PHOSPHATASE TOTAL 95 IU/L 45-117 LIPASE - 10/29/15 03:30 LIPASE 118 Units/L 73-393 CBC W/DIFF - 04/01/17 21:42 BASOPHIL # 0.1 k/cumm 0.0-0.2 BASOPHIL % 0.8 % 0-1 EOSINOPHIL # 0.8 k/cumm 0.1-0.5 EOSINOPHIL % 7.5 % 2-4 GRANULOCYTE # 6.3 k/cumm 2.0-9.0 GRANULOCYTE % 57.9 % 50-75 LYMPHOCYTE # 2.9 k/cumm 1.0-4.0 LYMPHOCYTE % 26.9 % 20-30 MEAN CELL HGB 28.9 pg 27.0-33.0 MEAN CELL HGB CONCENTRATION 34.7 g/dL 32.0-37.0 MEAN CELL VOLUME 83.2 fl 80.0-100.0 MONOCYTE # 0.7 k/cumm 0.1-1.0 MONOCYTE % 6.6 % 4-6 MEAN PLATELET VOLUME 10.7 fl 8.5-10.9 RED BLOOD CELL 5.95 m/cumm 4.00-6.00 RED CELL DISTRIBUTION WIDTH 12.6 % 11.0-15.6 WHITE BLOOD CELL 10.8 k/cumm 5.0-10.0 HEMOGLOBIN 17.2 gm/dL 14.0-18.0 HEMATOCRIT 49.5 % 40.0-54.0 NRBC % 0.0 /100 WBC 0.0-0.0 PLATELET COUNT 204 k/cumm 150-400 IMMATURE GRANULOCYTE % 0.3 % 0.0-0.6 IMMATURE GRANULOCYTE # 0.03 k/cumm 0.00-0.09 D-DIMER QUANT - 04/01/17 21:42 D-DIMER QUANT < 215 ng/mL < 500 CHEM/HEM PROFILE-BEDSIDE - 04/01/17 21:43 POTASSIUM 3.5 mmol/L 3.5-5.3 METHOD Bedside ANION GAP 19 mmol/L 10-20 METHOD Bedside GLUCOSE 115 mg/dL 70-99 BLOOD UREA NITROGEN 11 mg/dL 7-20 CREATININE 0.8 mg/dL 0.7-1.3 HEMOGLOBIN 17.0 gm/dL 14.0-18.0 HEMATOCRIT 50.0 % 40.0-54.0 SODIUM 142 mmol/L 135-148 CHLORIDE 104 mmol/L 98-110 CARBON DIOXIDE 24 mmol/L 21-32 CALCIUM IONIZED 4.6 mg/dL 4.5-5.3 TROPONIN I BEDSIDE - 04/01/17 21:45 METHOD Bedside TROPONIN I < 0.04 ng/mL < 0.11 UR DRUGS OF ABUSE SCREEN - 04/01/17 22:33 UR AMPHETAMINES SCREEN NEG (<1000 ng/mL) NEGATIVE UR BARBITURATE SCREEN NEG (< 200 ng/mL) NEGATIVE DRUGS OF ABUSE SCREEN COMMENT UR OPIATES SCREEN NEG (< 300 ng/mL) NEGATIVE UR PHENCYCLIDINE (PCP) SCREEN NEG (< 25 ng/mL) NEGATIVE UR CANNABINOIDS (THC) SCREEN NEG (< 50 ng/mL) NEGATIVE UR COCAINE METABOLITE SCREEN NEG (< 300 ng/mL) NEGATIVE UR METHADONE SCREEN NEG (< 300 ng/mL) NEGATIVE UR BENZODIAZEPINE SCREEN NEG (< 200 ng/mL) NEGATIVE CBC With Platelet and Differential - 07/13/17 07:07 Absolute Basophils 0.07 10*3/uL 0.00-0.20 Absolute Eosinophils 0.95 10*3/uL 0.00-0.50 Absolute Lymphocytes 2.82 10*3/uL 0.80-3.30 Absolute Monocytes 0.76 10*3/uL 0.30-1.00 Absolute Neutrophils 3.89 10*3/uL 1.90-7.00 Basophils 1 % 0-2 Eosinophils 11 % 0-4 HCT 47.7 % 42.0-52.0 HGB 16.7 g/dL 14.0-18.0 Immature Granulocytes 0.6 % 0.0-1.0 Lymphocytes 33 % 20-46 MCH 29.5 pg 27.0-32.0 MCHC 35.0 g/dL 32.0-36.0 MCV 84.3 fL 82.0-99.0 Monocytes 9 % 4-11 MPV 10.5 fL 9.4-12.3 Neutrophils 46 % 51-75 Nucleated RBC Automated 0.0 /100 WBC Platelet Count 177 K/uL 150-400 RBC 5.66 10*6/uL 4.60-6.20 RDW 13.2 % 11.5-14.5 WBC 8.5 K/uL 4.8-10.8 Comprehensive Metabolic Panel (CMP) - 07/13/17 07:07 Albumin 3.6 g/dL 3.5-4.8 Alkaline Phosphatase 69 U/L 26-104 ALT (SGPT) 25 U/L 17-63 Anion Gap 11 mEq/L 3-20 AST (SGOT) 19 U/L 15-41 Bilirubin Total 0.9 mg/dL 0.2-1.2 BUN 10 mg/dL 4-20 Calcium 8.8 mg/dL 8.6-10.0 Chloride 106 mEq/L 99-109 CO2 22 mEq/L 22-32 Creatinine 0.81 mg/dL 0.64-1.27 Globulin 2.1 g/dL 1.9-4.3 Glucose 111 mg/dL 70-100 Potassium 4.0 mEq/L 3.6-5.1 Protein 5.7 g/dL 6.1-7.9 Sodium 139 mEq/L 136-144 eGFR - 07/13/17 07:07 eGFR >60 mL/min >60 TSH - 07/13/17 07:07 TSH 0.99 uIU/mL 0.35-5.50 [facility] 11:00:00 DIAGNOSTIC IMAGING REPORT [facility] - [address] [address] PHONE #: [phone] FAX #: [phone] Name: ANNIKA WISE JR Loc: W.EDW Radiology No: : 1990 Age: 22 Sex: M Status: DEP Unit No: [id number] Phys: Bre Charles MD Acct: [id number] Reason For Exam: fall Exam Date: 07/23/2013 EXAMS: CPT CODE: [id number] HAND RIGHT 84457 REASON FOR EXAM: Hand pain status post fall TIME OF CURRENT STUDY: 07/23/2013 11:27 PM COMPARISON: Right finger radiograph on 11/18/2008. FINDINGS: 4 views of the right hand were obtained demonstrating a minimally impacted fifth digit metatarsal head fracture. There is approximately 30% volar angulation of the distal fracture fragment. Moderate surrounding soft tissue edema is seen. No other osseous abnormalities identified. No radiopaque foreign bodies visualized. The carpal bones are well aligned. No avascular necrosis is seen. IMPRESSION: 1. Right hand boxer's fracture with minimal impaction and angulation of the fracture site. I have personally reviewed these images and approved or corrected the resident physician's interpretation. at 1052 RESIDENT: ELVIN DAVEY MD Reported and signed by: BENJAMIN CAN MD CC: Technologist: ESCOBAR NWE Transcribed Date/Time: 07/26/2013 (6532)Anesthesia Tech: ANCA Printed Date/Time: 07/26/2013 (6514) BATCH NO: N/A PAGE 1 Signed Report Radiology Report from [facility] on 09/22/2015 06:39:00 DIAGNOSTIC IMAGING REPORT [facility] - [address] [place] [address] PHONE #: [phone] FAX #: [phone] Name: ANNIKA WISE JR Loc: W.[facility] Radiology No: : 1990 Age: 24 Sex: M Status: DEP ER Unit No: [id number] Phys: Jose Wild MD Acct: [id number] Reason For Exam: puncture wound Exam Date: 09/22/2015 EXAMS: CPT CODE: [id number] FOOT 3+[place] [address] REASON FOR EXAM: puncture wound TIME OF EXAM: 09/22/2015 12:43 AM COMPARISON: None TECHNIQUE: 3 views of the right foot FINDINGS: There is no evidence for fracture, dislocation, or other acute abnormality in the right foot. There is osteophytosis involving the tibiotalar joint. Joint spaces are well maintained. Soft tissues appear unremarkable. No unexpected radiopaque foreign body is visualized. IMPRESSION: 1. No acute fracture or dislocation in the right foot. No unexpected radiopaque foreign body. 2. Osteophytosis of the tibiotalar joint which is notable for patient's age. I have personally reviewed these images and corrected the resident physician's interpretation if necessary. at 0633 RESIDENT: JOSE MARTIN VASQUEZ MD Reported and signed by: JUVENAL MENON MD CC: Technologist: LORIE CROSS Transcribed Date/Time: 09/22/2015 (0633)Anesthesia Tech: MACI Printed Date/Time: 09/22/2015 (0677) BATCH NO: N/A PAGE 1 Signed Report Radiology Report from [facility] on 10/29/2015 08:22:00 DIAGNOSTIC IMAGING REPORT [facility] - [address] [place] [address] PHONE #: [phone] FAX #: [phone] Name: ANNIKA WISE JR [facility] Rad[facility] No: : 1990 Age: 25 Sex: M Status: DEP ER Unit No: [id number] Phys: Swapna Sweet Acct: [id number] Reason For Exam: upper abd pain,leukocytosis Exam Date: 10/29/2015 EXAMS: CPT CODE: [id number] CT ABD/PELVIS WITH CONTRAST 54884 REASON FOR EXAM: upper abd pain,leukocytosis TIME OF CURRENT STUDY: 10/29/2015 4:48 AM COMPARISON: None. TECHNIQUE: Helical contrast enhanced images were obtained through the abdomen and pelvis. FINDINGS: CT Abdomen: The liver, spleen, pancreas, kidneys, and adrenal glands all have normal appearance. There is no mesenteric or retroperitoneal adenopathy. The bowel loops are nondilated. A normal appendix is visualized. There is no free fluid or free air. CT Pelvis: The ureters and bladder are grossly normal. There is no free air, free fluid, loculated collection or adenopathy in the pelvis. The osseous and soft tissue structures of the abdomen and pelvis demonstrate no acute abnormalities. The included lung bases are clear. IMPRESSION: 1. No acute abnormalities in the abdomen or pelvis. No obstruction, inflammatory change or free fluid. Findings were discussed with Swapna Ahumada MD 10/29/2015 5:15 AM. I have personally reviewed these images and approved or corrected the resident physician's interpretation. at 0817 RESIDENT: ART KEANE DO Reported and signed by: SUE KIMBALL MD PAGE 1 Signed Report (CONTINUED) DIAGNOSTIC IMAGING REPORT [facility] - [address] [address] PHONE #: [phone] FAX #: [phone] Name: [facility]NI[facility] No: : 1990 Age: 25 Sex: M Status: DEP ER Unit No: [id number] Phys: DEIRDRE Swapna Ahumada Acct: [id number] Reason For Exam: upper abd pain,leukocytosis Exam Date: 10/29/2015 EXAMS: CPT CODE: [id number] CT ABD/PELVIS WITH CONTRAST 19420 <Continued> CC: Technologist: LORIE CROSS Transcribed Date/Time: 10/29/2015 (0817)Anesthesia Tech: ZAINA Printed Date/Time: 10/29/2015 (821) BATCH NO: N/A PAGE 2 Signed Report Radiology Report from [facility] on 04/01/2017 22:39:00 PATIENT NAME: FRANDYANNIKA NOEMY RODGERS UNIT NO: [id number] EXAMS: CPT CODE: [id number] CT LUMBAR SPINE W/[address] lumbar spine without contrast 04/01/17 History: lumbar pain, fall, syncope. Comparison: None. Technique: Serial helical tomographic images of the lumbar spine were obtained without the use of intravenous contrast. Additionally, sagittal and coronal reformatted images were also provided for review. Findings: Five non-rib bearing, lumbar type vertebrae are demonstrated. The lowest disc space is labeled L5-S1. There is no evidence of a fracture or subluxation. Alignment of the lumbar spine is within normal limits. Vertebral body heights and disc spaces are preserved. The osseous spinal canal and neural foramina are widely patent. There is no evidence of facet lock or perch. The posterior elements including the spinous processes are intact. The visualized soft tissues are unremarkable. Impression: No evidence of acute injury in the osseous lumbar spine. at 2233 Reported and signed by: TOOTIE SPAULDING MD CC: TECHNOLOGIST: KHUSHI ZUNIGA TRANSCRIBED DATE/Time: 04/01/20172232 BY: MARY EXAM COMPLETE DATE/TIME: [id number] D/TM:04/01/2017 (2238) [facility] NAME: ANNIKA WISE JR [address] HP: [phone] AGE: 26 S:[place], [place] [address] : 1990 LOC: [facility] PHYS: TRISTANBuddy - EnocskylarSwapna Buddy PHONE #: [phone] EXAM DATE: 04/01/2017 STATUS: REG FAX #: [phone] A#: [id number] U#: [id number] PAGE 1 Signed Report *Final Page* Radiology Report from [facility] on 04/01/2017 22:43:00 PATIENT NAME: ANNIKA WISE JR UNIT NO: [id number] EXAMS: CPT CODE: [id number] CT HEAD W/O CONTRAST 52228 REASON FOR EXAM: syncope,head injury TIME OF EXAM: 04/01/2017 10:26 PM COMPARISON: None TECHNIQUE: Routine helical CT images of the head were obtained without intravenous contrast. Sagittal and coronal reformats were obtained and reviewed. FINDINGS: The ventricles and cortical sulci are age-appropriate in appearance . No midline shift or mass effect. The white matter is unremarkable. The lerma-white matter differentiation is preserved. Trace subdural hemorrhage along the falciform ligament (image 16 series 2) measuring approximately 2 mm. No other extra-axial masses or fluid collections are present. The bony calvarium is intact. The visualized paranasal sinuses and mastoid air cells are clear. IMPRESSION: 1. Trace subdural hemorrhage along the falx. No midline shift or mass effect. 2. No no other intracranial hemorrhage identified. 3. No evidence of acute territorial ischemia or mass. I have personally reviewed these images and corrected the resident physician's interpretation if necessary. at 2238 RESIDENT: FABIAN WRIGHT DO Reported and signed by: TOOTIE SPAULDING MD [facility] NAME: ANNIKA WISE JR [address] HP: [phone] AGE: 26 S:[place], [place] [address] : 1990 LOC: W.EDS PHYS: Swapna Sweet PHONE #: [phone] EXAM DATE: 04/01/2017 STATUS: REG ER FAX #: [phone] A#: [id number] U#: [id number] PAGE 1 Signed Report (CONTINUED) PATIENT NAME: ANNIKA WISE JR UNIT NO: [id number] EXAMS: CPT CODE: [id number] CT HEAD W/O CONTRAST 98145 <Continued> CC: TECHNOLOGIST: KHUSHI ZUNIGA TRANSCRIBED DATE/Time: 04/01/20172237 BY: MARY EXAM COMPLETE DATE/TIME: [id number] D/TM:04/01/2017 (2243) [facility] NAME: ANNIKA WISE JR [address] HP: [phone] AGE: 26 S:[place] : 1990 LOC: W.EDS PHYS: Swapna Sweet PHONE #: [phone] EXAM DATE: 04/01/2017 STATUS: REG ER FAX #: [phone] A#: [id number] U#: [id number] PAGE 2 Signed Report *Final Page* Radiology Report from [facility] on 04/02/2017 10:46:00 PATIENT NAME: ANNIKA WISE JR UNIT NO: [id number] EXAMS: CPT CODE: [id number] CT HEAD W/O CONTRAST 66807 REASON FOR EXAM: f/u SDH TIME OF EXAM: 04/02/2017 9:16 AM COMPARISON: CT head on 04/01/2017 TECHNIQUE: Routine noncontrast-enhanced helical CT images of the head were obtained. FINDINGS: Previously noted subdural hemorrhage along the falx is no longer apparent. No acute intra-or extra-axial hemorrhage is identified. No extra axial fluid collections are seen. The ventricles and cortical sulci are age-appropriate in appearance. The lerma-white matter differentiation is preserved without CT evidence of acute territorial ischemia. There is no midline shift or mass- effect. No extra-axial masses or fluid collections are present. The bony calvarium is intact. The included portions of the paranasal sinuses are clear. IMPRESSION: 1. Small subdural hematoma along the falx is no longer apparent on this exam. 2. No CT evidence of acute intra-or extra-axial hemorrhage. No evidence of mass or large territorial infarction. Exam discussed with Arlene Wiseman PA-C at 04/02/2017 10:01 AM. I have personally reviewed these images and corrected the resident physician's interpretation if necessary. [facility] NAME: ANNIKA WISE JR [facility] [address] HP: [phone] AGE: 26 S:[place], [place] [address] : 1990 LOC: W.4729 1 PHYS: Arlene Chu PHONE #: [phone] EXAM DATE: 04/02/2017 STATUS: ADM IN FAX #: [phone] A#: [id number] U#: [id number] PAGE 1 Signed Report (CONTINUED) PATIENT NAME: ANNIKA WISE JR UNIT NO: [id number] EXAMS: CPT CODE: [id number] CT HEAD W/O CONTRAST 70615 <Continued> at 1041 RESIDENT: MIKI CHRISTENSEN MD Reported and signed by: EYAL LYMAN MD CC: Ajit Calloway MD; Sage Whiting MD TECHNOLOGIST: MARK CONRAD TRANSCRIBED DATE/Time: 04/02/2017 1041 BY: NORTH EXAM COMPLETE DATE/TIME: [id number] D/TM:04/02/2017 (1046) [facility] NAME: ANNIKA WISE JR [address] HP: [phone] AGE: 26 S:[place] [address] : 1990 LOC: W.4729 1 PHYS: Arlene Chu PA PHONE #: [phone] EXAM DATE: 04/02/2017 STATUS: ADM IN FAX #: [phone] A#: [id number] U#: [id number] PAGE 2 Signed Report *Final Page* Radiology Report from [facility] on 04/24/2017 11:49:00 PATIENT NAME: ANNIKA WISE JR UNIT NO: [id number] EXAMS: CPT CODE: [id number] MRI BRAIN WO CONT [id number] MRA HEAD WO CONTRAST [id number] - MRA HEAD WO CONTRAST, - MRI BRAIN WO CONT Date: 04/23/2017 REASON FOR EXAM: SYNCOPE AND COLLAPSE COMPARISON: CT brain, 04/02/2017 Technique: Multiplanar magnetic resonance imaging of the brain was performed. No IV contrast was administered. Pulse sequences obtained include: Sagittal T1, axial T2, FLAIR, gradient, DWI/ADC, 3-D [id number] with 3-D reformatted images. Findings: No restriction of diffusion is present. Midline structures are nondisplaced. There is no hydrocephalus. There is no significant mass effect. Basilar cisterns are preserved. Rock and white matter demonstrates normal MR signal. No abnormal extra axial fluid collections are noted. No susceptibility is present to suggest blood degradation products. Proximal cervical spinal cord, brainstem, and cerebellum are unremarkable. Normal cerebrovascular flow voids are seen. Mastoid air cells have normal MR signal. There is mucosal thickening throughout the left maxillary sinus. MRA: The anterior and posterior circulation is patent. Impression: No acute intracranial process; no ischemia herniation or hydrocephalus. Widely patent anterior posterior circulation with no evidence of stenosis, thrombus or aneurysm. Left maxillary sinus disease. [facility] CENTER NAME: ANNIKA WISE JR [address] HP: [phone] AGE: 26 S:[place] [address] : 1990 LOC: F[place]EL PHYS: Maria Eugenia Corona MD PHONE #: [phone] EXAM DATE: 04/23/2017 STATUS: DEP CLI FAX #: [phone] A#: [id number] U#: [id number] PAGE 1 Signed Report (CONTINUED) PATIENT NAME: ANNIKA WISE JR UNIT NO: [id number] EXAMS: CPT CODE: [id number] MRI BRAIN WO CONT [id number] MRA HEAD WO CONTRAST [id number] <Continued> at 1144 Reported and signed by: TOOTIE SPAULDING MD CC: Ajit Calloway MD; Maria Eugenia Daigle MD TECHNOLOGIST: FAY ABDI TRANSCRIBED DATE/Time: 04/24/2017 1144 BY: MARY EXAM COMPLETE DATE/TIME: [id number] D/TM:04/24/2017 (1149) [facility] NAME: ANNIKA WISE JR [address] HP: [phone] AGE: 26 S:[place] [address] : 1990 LOC: F[place]EL PHYS: Maria Eugenia Corona MD PHONE #: [phone] EXAM DATE: 04/23/2017 STATUS: DEP CLI FAX #: [phone] A#: [id number] U#: [id number] PAGE 2 Signed Report *Final Page* Radiology Report from [facility] on 04/24/2017 11:49:00 PATIENT NAME: ANNIKA WISE JR UNIT NO: [id number] EXAMS: CPT CODE: [id number] MRI BRAIN WO CONT [id number] MRA HEAD WO CONTRAST [id number] - MRA HEAD WO CONTRAST, - MRI BRAIN WO CONT Date: 04/23/2017 REASON FOR EXAM: SYNCOPE AND COLLAPSE COMPARISON: CT brain, 04/02/2017 Technique: Multiplanar magnetic resonance imaging of the brain was performed. No IV contrast was administered. Pulse sequences obtained include: Sagittal T1, axial T2, FLAIR, gradient, DWI/ADC, 3-D mpht-bq-wigcce with 3-D reformatted images. Findings: No restriction of diffusion is present. Midline structures are nondisplaced. There is no hydrocephalus. There is no significant mass effect. Basilar cisterns are preserved. Rock and white matter demonstrates normal MR signal. No abnormal extra axial fluid collections are noted. No susceptibility is present to suggest blood degradation products. Proximal cervical spinal cord, brainstem, and cerebellum are unremarkable. Normal cerebrovascular flow voids are seen. Mastoid air cells have normal MR signal. There is mucosal thickening throughout the left maxillary sinus. MRA: The anterior and posterior circulation is patent. Impression: No acute intracranial process; no ischemia herniation or hydrocephalus. Widely patent anterior posterior circulation with no evidence of stenosis, thrombus or aneurysm. Left maxillary sinus disease. [facility] NAME: ANNIKA WISE JR [address] HP: [phone] AGE: 26 S:[place], [place] [address] : 1990 LOC: [place] PHYS: Maria Eugenia Corona MD PHONE #: [phone] EXAM DATE: 04/23/2017 STATUS: [facility] FAX #: [phone] A#: [id number] U#: [id number] PAGE 1 Signed Report (CONTINUED) PATIENT NAME: ANNIKA WISE JR UNIT NO: [id number] EXAMS: CPT CODE: [id number] MRI BRAIN WO CONT [id number] MRA HEAD WO CONTRAST [id number] <Continued> at 1144 Reported and signed by: TOOTIE SPAULDING MD CC: Ajit Calloway MD; Maria Eugenia Daigle MD TECHNOLOGIST: FAY ABDI TRANSCRIBED DATE/Time: 04/24/2017 1144 BY: MARY EXAM COMPLETE DATE/TIME: [id number] D/TM:04/24/2017 (1149) [facility] NAME: ANNIKA WISE JR [address] HP: [phone] AGE: 26 S:M [place], [place] [address] : 1990 LOC: W.JANIS PHYS: Maria Eugenia Corona MD PHONE #: [phone] EXAM DATE: 04/23/2017 STATUS: DEP CLI FAX #: [phone] A#: [id number] U#: [id number] PAGE 2 Signed Report *Final Page* Radiology Report from [facility] on 03/25/2018 11:49:00 PATIENT NAME: ANNIKA WISE JR UNIT NO: [id number] EXAMS: CPT CODE: [id number] XR KNEE RIGHT 3 VIEWS 01816 PROCEDURE: - XR KNEE RIGHT 3 VIEWS TIME OF EXAM: 03/25/2018 10:14 AM REASON FOR EXAM: RIGHT MEDIAL KNEE PAIN COMPARISON: None. FINDINGS: 4 views of the right knee show no fractures, dislocations, or other acute bony abnormalities identified. The joint spaces are well maintained throughout. The soft tissues appear unremarkable. No radiopaque foreign bodies are identified. IMPRESSION: No acute fractures or dislocations of the right knee. at 1143 Reported and signed by: ROWAN SCHMIDT MD CC: Rajendra Ann MD TECHNOLOGIST: DORIAN CROSS TRANSCRIBED DATE/Time: 03/25/2018 1143 BY: SHAZIA EXAM COMPLETE DATE/TIME: [id number] 1014 D/TM:03/25/2018 (1149) [facility] NAME: ANNIKA WISE JR [facility] [address] HP: [phone] AGE: 27 S:[place] [address] : 1990 LOC: W.FAM PHYS: Augusto Jean-Baptiste MD PHONE #: [phone] EXAM DATE: 03/25/2018 STATUS: REG REF FAX #: [phone] A#: [id number] U#: [id number] PAGE 1 Signed Report *Final Page* Radiology Report from [facility] on 04/13/2018 23:30:00 PATIENT NAME: ANNIKA WISE JR UNIT NO: [id number] EXAMS: CPT CODE: [id number] [place] CONT [id number] EXAM: - MRI KNEE RT WO CONT COMPARISON: The radiographs 03/25/2018. TECHNIQUE: Multiplanar multisequence imaging of the right knee was performed without intravenous or intra-articular contrast. CLINICAL INDICATION: Medial sided right knee pain. FINDINGS: The cruciate ligaments are intact. The medial and lateral collateral ligaments are intact. There is a longitudinal oblique tear involving the posterior horn of the medial meniscus (image 7 series 5). This tear contacts the inferior surface. There is a small incomplete radial tear of the posterior horn of the medial meniscus near the posterior root attachment site that is within 6 mm of the posterior root attachment (image 11 series 6). There is no significant extrusion. There is chondral thinning in the medial femorotibial compartment. Small region of subchondral marrow edema is seen in the anteromedial aspect of the medial femoral condyle (image 20 series 7). There is a discoid morphology of the lateral meniscus, filling the majority of the lateral femorotibial compartment (image 13 series 7). Normal intrinsic signal of the meniscus is maintained and there is no evidence of a tear. The cartilage in the lateral femorotibial compartment is maintained. There is no acute fracture. There is no dislocation. The patellofemoral alignment is maintained. The patellar and trochlear cartilage is intact. The extensor mechanism is intact. There is a physiologic amount of joint fluid. There is no popliteal cyst. [facility] NAME: ANNIKA WISE JR [address] HP: [phone] AGE: 27 S:[place], [place] [address] : 1990 LOC: WJasmyn[place]ANIS PHYS: SCRALICJA - Chelsea Cleaning MD PHONE #: [phone] EXAM DATE: 04/13/2018 STATUS: REG CLI FAX #: [phone] A#: [id number] U#: [id number] PAGE 1 Signed Report (CONTINUED) PATIENT NAME: ANNIKA WISE JR UNIT NO: [id number] EXAMS: CPT CODE: [id number] MRI KNEE RT WO CONT [id number] <Continued> IMPRESSION: 1. Longitudinal oblique tear of the posterior horn of the medial meniscus with an additional partial thickness radial tear of the posterior root of the medial meniscus without detachme nt. 2. Chondral thinning of the medial femorotibial compartment. 3. Complete discoid morphology of the lateral meniscus. No tear. 4. Small focus of marrow edema in the anteromedial aspect of the medial femoral condyle, probably related to osteochondral degeneration. at 2325 Reported and signed by: ERIBERTO LOUIS MD CC: Chelsea Cleaning MD; Rajendra Ann MD TECHNOLOGIST: ANNA CASTILLO TRANSCRIBED DATE/Time: 04/13/2018 2325 BY: PPAUVI EXAM COMPLETE DATE/TIME: [id number] D/TM:04/13/2018 (2330) [facility] NAME: ANNIKA [facility] [address] HP: [phone] AGE: 27 S:[place] [address] : 1990 LOC: [facility]JANIS [facility] Chelsea Cleaning MD PHONE #: [phone] EXAM DATE: 04/13/2018 STATUS: REG CLI FAX #: [phone] A#: [id number] U#: [id number] PAGE 2 Signed Report *Final Page* Encounters ACCT No. Visit Date/Time Discharge Status Pt. Type Provider Facility Loc./Unit Complaint [id number] 04/13/2018 17:09:00 04/13/2018 17:09:00 DIS Outpatient Chelsea Cleaning MD [facility] W.JANIS [id number] 04/23/2017 14:23:00 04/23/2017 14:23:00 DIS Outpatient Oxana CARVAJAL, Maria Eugenia Pichardo [facility] W.JANIS [id number] 04/22/2017 14:30:00 04/22/2017 14:30:00 CAN Outpatient Augusto Corley [address] W.RAD [id number] 04/01/2017 23:08:00 04/02/2017 11:24:00 DIS Inpatient Johanne CARVAJAL, Sage Díaz [facility] W.7TS [id number] 08/01/2016 01:44:00 08/01/2016 02:05:00 DIS Emergency Shania CARVAJAL, Ajit Hernandez [facility] W.EDW [id number] 10/29/2015 02:41:00 10/29/2015 06:20:00 DIS Emergency Zita CARVAJAL, Swapna Goodwin [facility] W.EDW [id number] 09/22/2015 00:17:00 09/22/2015 01:27:00 DIS [facility] [id number] 07/23/2013 23:01:00 07/24/2013 00:07:00 DIS Emergency Lubna CARVAJAL, Bre [facility] W.EDW [id number] 01/01/2013 12:06:00 01/01/2013 12:48:00 DIS Emergency Jesus CARVAJAL, Jewel [facility].MANSI [id number] 09/03/2012 20:26:00 09/03/2012 23:35:00 DIS Emergency Adelfo CARVAJAL, Susie [facility].EDS [id number] 03/25/2018 11:49:00 Document Registration [id number] 05/11/2018 09:16:10 Document Registration [id number] 04/18/2018 10:29:00 04/18/2018 23:59:00 DIS Outpatient Jenifer Owen [facility] Audio AIR BONE TYMP DONG [id number] 04/18/2018 10:01:00 04/18/2018 23:59:00 DIS Outpatient Jessika Ordonez [facility] ENT TCPA RCK EARS [id number] 01/12/2018 15:37:00 01/12/2018 23:59:00 DIS Outpatient Sadie Martínez [facility] Audio JL MDC Pahls [id number] 01/12/2018 14:01:00 01/12/2018 23:59:[address] [facility] ENT 2 WK EARS [id number] 12/29/2017 13:19:00 12/29/2017 23:59:00 DIS Outpatient Lenard Pandey [facility] ENT TUBE PLACEMENT [id number] 12/28/2017 22:32:00 12/28/2017 23:59:00 DIS Outpatient Nidia Greer [facility] Audio [facility] audio-nidia [id number] 12/28/2017 15:43:00 12/28/2017 23:59:[address] [facility] ENT EAR CLEANING EAR PAIN [id number] 12/02/2017 14:18:00 12/02/2017 23:59:[address] [facility] ENT EARS FOLLOW UP [id number] 12/02/2017 10:11:00 12/02/2017 23:59:00 DIS Outpatient Jesu Greera L [facility] Audio [facility] audio-nidia [id number] 11/23/2017 14:09:00 11/23/2017 23:59:59 CLS Outpatient Kali Ricardo [facility] ENT NPV POS RUPTURED TYMPANIC MEMBRANE [id number] 04/19/2018 05:19:30 Document Registration [id number] 12/03/2017 05:19:11 Document Registration [email or web address] 07/25/2013 03:38:15 ACT Document Registration [id number] 11/09/2017 23:14:00 11/10/2017 01:12:00 DIS Emergency Garcia Curt [facility] ED Bleeding from R EAR [id number] 07/12/2017 08:26:00 07/14/2017 11:45:00 DIS Inpatient Page Alan [facility] F5N Seizures [id number] 11/10/2017 05:19:16 Document Registration [id number] 07/13/2017 05:18:22 Document Registration [id number] 03/28/2018 01:30:00 03/28/2018 23:59:59 CLS Outpatient ADILSONKARINA HOOVER [email or web address] 05/08/2017 17:30:08 ACT Document Registration
--- OUTSIDE RECORDS SUMMARY | 2018-10-10 19:32 | XMS REPORT ---
Author Author Augusto Corley Organization [facility] Address [address] [place] [address] Care Team Providers Care Lobbyist Name Role Phone Augusto Corley Unavailable PROBLEMS Type Condition ICD9-CM Code YIG95-WV Code Onset Dates Condition Status SNOMED Code Problem CARE LEVEL 3 CARE3 Active 267627736 Problem Dietary counseling Z71.3 Active 857628093 Problem Tobacco use Z72.0 Active 052529800 Problem Needs smoking cessation education F17.200 Active 184348834 Problem Periodic limb movements of sleep G47.61 Active 155899887 Problem Prehypertension R03.0 Active 300312577 Problem Obesity (BMI 30.0-34.9) E66.9 Active 771502810417317 ALLERGIES No Information SOCIAL HISTORY Never Assessed PLAN OF CARE VITAL SIGNS MEDICATIONS Unknown Medications RESULTS No Results PROCEDURES No Known procedures IMMUNIZATIONS No Known Immunizations MEDICAL (GENERAL) HISTORY Type Description Date Surgical History Bone spur removal-right foot Surgical History Tonsillectomy Surgical History Bilateral tympanostomies
[2018-10-10 19:52] VITALS: BP 123/87
--- NOTE | 2018-10-10 20:23 | NUR ---
PATIENT NOT IN WAITING ROOM AT 2022
== END 2018-10-10 20:33 | disposition left against medical advice (07) ==
LOC: ER 19:27
DX: R10.9 Unspecified abdominal pain (principal); R11.2 Nausea with vomiting, unspecified; R42 Dizziness and giddiness
CPT/HCPCS: 99281

== ENCOUNTER 2019-03-27 17:34 | Emergency (ER) | payer SELFPAY ==
[~2019-03-27] VITALS: Ht 180.3 cm; Wt 102.2 kg
[2019-03-27 18:00] VITALS: BP 125/80
== END 2019-03-27 18:40 | disposition left against medical advice (07) ==
LOC: EDUNIT# 17:34 → ER 17:34
DX: M25.561 Pain in right knee (principal)
CPT/HCPCS: 99283

== ENCOUNTER → 2019-04-21 | Outpatient (CLI) | payer BC ==
--- NOTE | 2019-04-21 16:08 | Diagnostic Imaging Report ---
PROCEDURE: MRI right joint lower extremity without contrast. TECHNIQUE: Multiplanar, multisequence non contrast-enhanced MRI of the right lower extremity was accomplished. INDICATION: Right knee pain. History of previous right knee surgery in June 2018. COMPARISON: None FINDINGS: No acute fracture or dislocation is seen in the right knee. Alignment appears normal. There is significant motion artifact on multiple sequences. No joint effusion is seen. The articular cartilage in the patellofemoral compartment appears normal. The articular cartilage in the medial and lateral compartments appears normal. There appears to be mild irregularity and possibly a small tear at the inferior articular surface of the medial meniscus at the junction of the posterior horn and body (image 22 series 5 and image 9 series 6). The lateral meniscus appears intact. The anterior and posterior cruciate ligaments are intact. The medial collateral ligament is intact. The lateral collateral ligamentous complex is intact. The extensor mechanism and the medial and lateral retinacula are intact. Fluid in the deep infrapatellar bursa is mildly increased. IMPRESSION: 1. Suspect small tear at the junction of the posterior horn and body of the medial meniscus in the right knee. 2. Mildly increased fluid in the deep infrapatellar bursa, could represent a mild bursitis. Dictated by: Dictated on workstation # [id number]
== END ==
LOC: RAD 14:57
PROVIDERS: ATTEND Student in an Organized Health Care Education/Training Program
DX: M25.361 Other instability, right knee (principal); M25.561 Pain in right knee; Z98.890 Other specified postprocedural states
CPT/HCPCS: 73721

== ENCOUNTER → 2020-08-28 | Outpatient (CLI) | payer BC, MEDICAID ==
--- NOTE | 2020-08-29 08:58 | Diagnostic Imaging Report ---
MRI RT LOWER EXT JOINT W/O TECHNIQUE: Multiplanar, multisequence MR imaging of the right knee was performed without contrast. COMPARISON: Right knee MRI of 04/21/2019 INDICATION: Knee pain FINDINGS: Since prior examination, there are changes from arthroscopy present. MENISCI Medial meniscus: There remains some linear intermediate signal at the junction of the posterior horn and body of the medial meniscus which is most likely due to a expected residual horizontal cleavage tear status post debridement with stable margin. No parameniscal cyst or new tear. Lateral meniscus: The free edge of the posterior horn has some minimal truncation which could be due to partial meniscectomy as well. No features of unstable tear in the lateral meniscus. LIGAMENTS ACL: Intact. PCL: Intact. MCL: Intact. LCL: The lateral collateral ligamentous complex is intact. EXTENSOR MECHANISM There is thickening of the patellar tendon at its origin with some T2 hyperintense signal present suggestive of tendinopathy and low-grade partial-thickness tearing. Overall, the appearance is similar to prior examination. The medial and lateral patellofemoral ligaments are intact. CARTILAGE Medial compartment: Medial compartment articular cartilage is well preserved without focal high-grade chondromalacia. Lateral compartment: The lateral compartment articular cartilage is preserved without high-grade chondromalacia. Patellofemoral compartment: The patellofemoral articular cartilage is well preserved without high-grade chondromalacia. BONE No fracture, stress fracture or osteonecrosis. SOFT TISSUE No knee effusion or Riddle's cyst. IMPRESSION: 1. Since prior examination, there are changes of arthroscopy. There likely have been partial meniscectomies of both the medial and lateral menisci and correlation with surgical history is suggested. 2. There remains a nondisplaced horizontal cleavage tear at the junction of the body and posterior horn of the medial meniscus which would be expected for a tear that has been debrided to stable margins. No unstable meniscal tear. 3. Tendinopathy and low-grade partial-thickness tearing at the origin of the patellar tendon is similar to prior examination. Correlation for anterior knee pain and patellar tendon origin is suggested. 4. Articular cartilage is well preserved. Dictated by: Dictated on workstation # [id number]
== END ==
LOC: RAD 14:37
PROVIDERS: ATTEND Student in an Organized Health Care Education/Training Program
DX: S83.241A Other tear of medial meniscus, current injury, right knee, initial encounter (principal); S76.111A Strain of right quadriceps muscle, fascia and tendon, initial encounter; X58.XXXA Exposure to other specified factors, initial encounter
CPT/HCPCS: 73721

== ENCOUNTER 2020-11-23 20:10 | Emergency (ER) | payer MEDICAID ==
[~2020-11-23] VITALS: Ht 180.3 cm; Wt 104.0 kg
[2020-11-23] MEDS ORDERED: IBUPROFEN 600 MG (MOTRIN) TAB PO ONE ×2 (20:32→21:00)
--- NOTE | 2020-11-23 20:40 | ED Cough/URI ---
General Chief Complaint: Cough/Cold/Flu Symptoms Stated Complaint: FEVER/COUGH/SOA/HEADACHE/SYNCOPAL EPISODE/SWEATING Source: patient Exam Limitations: no limitations (LITO XIE APRN) History of Present Illness Date Seen by Provider: Nov 23, 2020 Time Seen by Provider: 20:28 Initial Comments This is a well-appearing 30-year-old male who presented to the ED via POV with complaints of cough, sore throat, generalized malaise, fever since last night. States that his symptoms were the worst around 2200 in the evening however since this morning to today his symptoms have improved. States that he did have a fainting episode shortly prior to arrival however he has been having these quite frequently for several years. Has been followed up closely and had multiple head CT's, MRI's, and tested for epilepsy and cardiology etiology but no source has been identified. Only complaint is mild cough and generalized fatigue. Works at [employer]. Did not receive COVID vaccines. (LITO XIE APRN) Allergies and Home Medications Allergies Coded Allergies: No Known Drug Allergies (Unverified , 10/10/18) Patient Home Medication List Home Medication List Reviewed: Yes (LITO XIE APRN) Review of Systems Review of Systems Constitutional: chills, malaise EENTM: throat pain Respiratory: cough Cardiovascular: see HPI; No chest pain, No palpitations Gastrointestinal: no symptoms reported Genitourinary: no symptoms reported Musculoskeletal: no symptoms reported Skin: no symptoms reported Psychiatric/Neurological: No Symptoms Reported Hematologic/Lymphatic: No Symptoms Reported Immunological/Allergic: no symptoms reported (LITO XIE APRN) Past Qbghitv-Werusp-Lnfjub Hx Immunizations Up To Date Tetanus Booster (TDap): Unknown (LITO XIE APRN) Seasonal Allergies Seasonal Allergies: No (LITO XIE APRN) Past Medical History Surgeries: Yes (R knee) Orthopedic Respiratory: No Cardiac: No Neurological: No Genitourinary: No Gastrointestinal: No Musculoskeletal: No Endocrine: No HEENT: No Cancer: No Psychosocial: No Integumentary: No Blood Disorders: No (LITO XIE APRN) Physical Exam Vital Signs - First Documented 11/23/20 11/23/20 20:35 21:55 Temp 38.9 Pulse 110 Resp 18 B/P (MAP) 128/83 (98) Pulse Ox 96 O2 Delivery Room Air (ARNEL CHOWDHURY MD) Capillary Refill : (LITO XIE APRN) Height: 5'11.00" Weight: 220lbs. oz. 99.680915cr; 31.00 BMI Method:Stated General Appearance: WD/WN, no apparent distress Eyes: Bilateral Eye Normal Inspection, Bilateral Eye PERRL, Bilateral Eye EOMI HEENT: PERRL/EOMI, normal ENT inspection, pharynx normal Neck: full range of motion, normal inspection Respiratory: lungs clear, normal breath sounds, no respiratory distress, no accessory muscle use Cardiovascular: regular rate, rhythm, no murmur Gastrointestinal: normal bowel sounds, non tender, soft, no organomegaly Extremities: normal range of motion, non-tender, normal inspection Neurologic/Psychiatric: no motor/sensory deficits, alert, normal mood/affect, oriented x 3 Skin: normal color, warm/dry (LITO XIE APRN) Progress/Results/Core Measures Suspected Sepsis SIRS Temperature: Pulse: Respiratory Rate: Blood Pressure / Mean: (LITO XIE APRN) Results/Orders Lab Results Laboratory Tests Test 11/23/20 20:22 11/23/20 20:39 Range/Units Influenza Type A (RT-PCR) Not Detected Not Detecte Influenza Type B (RT-PCR) Not Detected Not Detecte SARS-CoV-2 RNA (RT-PCR) Not Detected Not Detecte Group A Streptococcus Screen NEGATIVE NEGATIVE (ARNEL CHOWDHURY MD) Medications Given in ED Current Medications Medications Dose Ordered Sig/Eduardo Route Start Time Stop Time Status Last Admin Dose Admin Ibuprofen 600 mg STK-MED ONCE PO 11/23/20 20:32 11/23/20 20:35 DC 11/23/20 20:38 600 MG (ARNEL CHOWDHURY MD) Vital Signs/I&O 11/23/20 11/23/20 20:35 21:55 Temp 38.9 36.9 Pulse 110 107 Resp 18 B/P (MAP) 128/83 (98) 133/72 Pulse Ox 96 97 O2 Delivery Room Air Room Air (ARNEL CHOWDHURY MD) Vital Signs/I&O Capillary Refill : (LITO XIE APRN) Progress Note : Progress Note Patient examined and in no acute distress. Orders given for ibuprofen 600 mg p.o. x1 now. Tested for influenza, Covid, strep. All negative. His symptoms started yesterday so very well could be COVID despite negative test. Will have him isolate and repeat test in a couple days. Reviewed discharge plan of care and he is agreeable with plan. (LITO XIE APRN) ECG Initial ECG Impression Date: Nov 23, 2020 Initial ECG Impression Time: 20:31 Initial ECG Rate: 107 Initial ECG Rhythm: S.Tach Initial ECG Impression: Nonspecific Changes Initial ECG Comparisson: No Previous ECG Available (LITO XIE APRN) Departure Impression Primary Impression: Suspected COVID-19 virus infection Disposition: HOME, SELF-CARE Condition: Stable Departure-Patient Inst. Decision time for Depature: 21:11 (LITO XIE APRN) Referrals: ALEJANDRA BURCH MD (PCP/Family) Primary Care Physician Patient Instructions: COVID-19 Tests, COVID-19 ED Add. Discharge Instructions: Plan: 1. Take Tylenol or Ibuprofen for pain/fever. Drink plenty of fluids. 2. Isolate at home for 10 days. Since your symptoms just started last night you may not have enough viral load to test positive. 3. You can go to drive through COVID test through [facility] or [facility] to have rechecked in a couple days. 4. Return to ER for any new, concerning, or worsening symptoms. All discharge instructions reviewed with patient and/or family. Voiced understanding. Work/School Note: Work Release Form Date Seen in the Emergency Department: Nov 23, 2020 Return to Work: Dec 04, 2020 Other Restrictions Listed Below: Suspected COVID positive. Will need re- tested in 2-3 days before returning ATTENDING PHYSICIAN NOTE: I was physically present as attending physician in the emergency department during the care of this patient. I did review EKG with lito Xie NP. There was sinus tachycardia with juvenile pattern early repolarization. These EKG findings were not concerning for ischemia, especially in absence of chest pain. I was otherwise not directly involved in the decision making or delivery of care for this patient. (ARNEL CHOWDHURY MD) LITO XIE APRN Nov 23, 2020 20:40 ARNEL CHOWDHURY MD Nov 23, 2020 22:14
[2020-11-23 21:55] VITALS: BP 133/72
== END 2020-11-23 21:55 | disposition home or self-care (01) ==
LOC: EDUNIT# 20:10 → ER 20:12
DX: Z20.822 Contact with and (suspected) exposure to COVID-19 (principal)
CPT/HCPCS: 87430; 87636; 93005; 99284

== ENCOUNTER 2021-02-20 08:28 | Outpatient (CLI) | payer MEDICAID ==
[~2021-02-20] VITALS: Ht 180.3 cm; Wt 104.5 kg
== END 2021-02-21 15:09 | disposition home or self-care (01) ==
LOC: PREOP 08:28
PROVIDERS: ATTEND Otolaryngology Otolaryngology/Facial Plastic Surgery
DX: Z01.818 Encounter for other preprocedural examination (principal)

== ENCOUNTER 2021-02-27 07:20 | Day surgery (SDC) | payer MEDICAID ==
[2021-02-27] VITALS (10 sets, daily range): BP systolic 109–127; BP diastolic 59–88
[~2021-02-27] VITALS: Ht 180.3 cm; Wt 104.5 kg
[2021-02-27] MEDS ORDERED: LACTATED RINGERS 1,000 ML IV PRN (07:30)
[2021-02-27] MEDS ORDERED: MIDAZOLAM 2 MG/2 ML (VERSED) VIAL ONE (08:12)
[2021-02-27] MEDS ORDERED: fentaNYL INJ 100 MCG/2 ML AMP ONE (08:12)
[2021-02-27] MEDS ORDERED: proPOfol 200 MG/20 ML (DIPRIVAN) VIAL IV ONE (08:12)
[2021-02-27] MEDS ORDERED: LIDOCAINE PF 2% 5 ML (XYLOCAINE) VIAL ONE (08:12)
[2021-02-27] MEDS ORDERED: SEVOFLURANE (ULTANE) 15 ML INHAL SOLN ONE (08:48)
--- NOTE | 2021-02-27 08:48 | Progress Note-Pre Operative ---
Pre-Operative Progress Note H&P Reviewed The H&P was reviewed, patient examined and no changes noted. Date Seen by Provider: Feb 27, 2021 Time Seen by Provider: 08:15 Date H&P Reviewed: Feb 27, 2021 Time H&P Reviewed: 08:15 Pre-Operative Diagnosis: cHRONIC rECURRENT patito NEL WANG MD Feb 27, 2021 08:48
--- NOTE | 2021-02-27 08:49 | Progress Note-Post Operative ---
Post-Operative Progess Note Surgeon (s)/[employer] (s) Surgeon NEL WANG MD [employer] n/a Pre-Operative Diagnosis cHRONIC rECURRENT patito Post-Operative Diagnosis same Post-Op Procedure Note Date of Procedure: Feb 27, 2021 Name of Procedure Performed: BMT Description & Findings Description and Findings: n/a Anesthesia Type gen lma Estimated Blood Loss minimal Packing none. Specimen(s) collected/removed none NEL WANG MD Feb 27, 2021 08:48
[2021-02-27] MEDS ORDERED: APAP 325 MG/10.15 ML LIQ (TYLENOL) UDC PO PRN (09:00)
--- NOTE | 2021-02-27 09:41 | Anesthesia-General Post-Op ---
General Patient Condition Mental Status/LOC: Same as Preop Cardiovascular: Satisfactory Nausea/Vomiting: Absent Respiratory: Satisfactory Pain: Controlled Complications: Absent Post Op Complications Complications None Follow Up Care/Instructions Patient Instructions None needed. Anesthesia/Patient Condition Patient Condition Patient is doing well, no complaints, stable vital signs, no apparent adverse anesthesia problems. No complications reported per nursing. ROSA MCCOLLUM CRNA Feb 27, 2021 09:41
[2021-02-27] MEDS ORDERED: CIPR5DRO OP ×2 (09:48)
== END 2021-02-27 10:46 ==
LOC: SDC 07:20
PROVIDERS: ATTEND Otolaryngology Otolaryngology/Facial Plastic Surgery
DX: T85.698A Other mechanical complication of other specified internal prosthetic devices, implants and grafts, initial encounter (principal); H66.93 Otitis media, unspecified, bilateral; Z68.32 Body mass index [BMI] 32.0-32.9, adult
CPT/HCPCS: 87081

== ENCOUNTER 2021-02-27 20:31 | Emergency (ER) | payer MEDICAID ==
[~2021-02-27] VITALS: Ht 180.3 cm; Wt 104.5 kg
[~2021-02-27 20:31] MED LIST: CIPR5DRO OP
--- NOTE | 2021-02-27 22:12 | ED General ---
General Chief Complaint: COVID19 Suspect/Confirmed Stated Complaint: COUGH/FEVER/CHILL/SORE THROAT Source of Information: Patient Exam Limitations: No Limitations History of Present Illness Date Seen by Provider: Feb 27, 2021 Time Seen by Provider: 22:10 Initial Comments Presents to ER accompanied by his who is also being evaluated as they both have symptoms of cough fever chills sore throat onset this morning. Patient had tympanostomy tubes placed here today. [id number] with whom he has close contact reportedly tested positive. Timing/Duration: 1-2 Days Severity: Moderate Associated Systoms: Cough, Headaches, Nausea/Vomiting Allergies and Home Medications Allergies Coded Allergies: No Known Drug Allergies (Unverified , 02/27/21) Patient Home Medication List Home Medication List Reviewed: Yes Ciprofloxacin HCl (Ciloxan) 5 Ml Drops, 3 DROPS OP BID Prescribed by: ROWAN HERNANDEZ on 02/27/21 0948 Review of Systems Review of Systems Constitutional: see HPI EENTM: see HPI Respiratory: see HPI, cough Cardiovascular: no symptoms reported Genitourinary: no symptoms reported Musculoskeletal: no symptoms reported Skin: no symptoms reported Psychiatric/Neurological: No Symptoms Reported Hematologic/Lymphatic: No Symptoms Reported Immunological/Allergic: no symptoms reported Past Jfaksla-Epexvk-Sxpzec Hx Immunizations Up To Date Tetanus Booster (TDap): Unknown Seasonal Allergies Seasonal Allergies: No Past Medical History Surgeries: Yes (R knee x2, BMT several, R foot ) Orthopedic, Tonsillectomy Respiratory: No Currently Using CPAP: No Currently Using BIPAP: No Cardiac: No Neurological: No Genitourinary: No Gastrointestinal: No Musculoskeletal: No Endocrine: No HEENT: Yes Chronic Ear Infection Cancer: No Psychosocial: No Integumentary: No Blood Disorders: No Physical Exam Vital Signs Capillary Refill : Height, Weight, BMI Height: 5'11.00" Weight: 220lbs. oz. [id number]; 32.14 BMI Method:Stated General Appearance: No Apparent Distress, WD/WN Eyes: Bilateral Eye Normal Inspection, Bilateral Eye PERRL, Bilateral Eye EOMI Neck: Full Range of Motion, Normal Inspection Respiratory: No Accessory Muscle Use, No Respiratory Distress Cardiovascular: Regular Rate, Rhythm, Normal Peripheral Pulses Gastrointestinal: Normal Bowel Sounds, Non Tender, Soft Extremity: Normal Capillary Refill, Normal Inspection Neurologic/Psychiatric: Alert, Oriented x3 Skin: Normal Color, Warm/Dry Progress/Results/Core Measures Suspected Sepsis SIRS Temperature: Pulse: Respiratory Rate: Blood Pressure / Mean: Results/Orders Lab Results Laboratory Tests Test 02/27/21 20:43 Range/Units My Orders Orders - LETY JOSEPH APRN Covid 19 Inhouse Test (02/27/21 20:36) Influenza A And B By Pcr (02/27/21 20:36) Vital Signs/I&O Capillary Refill : Departure Communication (Admissions) 2213-'s Covid test is negative, his is still pending. Lab is backed up with several tests. We will go ahead and let him go home and call ER for results later. Impression Primary Impression: Viral syndrome Disposition: HOME, SELF-CARE Condition: Stable Departure-Patient Inst. Decision time for Depature: 22:11 Referrals: ALEJANDRA BURCH MD (PCP/Family) Primary Care Physician Patient Instructions: Viral Syndrome (DC) Add. Discharge Instructions: 1. Return to ER for any concerns. Follow-up with your doctor next week. If you have persistent symptoms on Wednesday you need to be retested before going back to work. You can call appear later to get your test results rather than waiting. Call [phone]. All discharge instructions reviewed with patient and/or family. Voiced understanding. Work/School Note: Work Release Form Date Seen in the Emergency Department: Feb 27, 2021 Return to Work: Mar 02, 2021 LETY JOSEPH APRN Feb 27, 2021 22:12
[2021-02-27 22:20] VITALS: BP 145/114
== END 2021-02-27 22:20 ==
LOC: EDUNIT# 20:31 → ER 20:32
DX: B34.9 Viral infection, unspecified (principal); Z20.822 Contact with and (suspected) exposure to COVID-19
CPT/HCPCS: 87636; 99283

== ENCOUNTER → 2021-04-17 | Outpatient (CLI) | payer OTHER | LOC: WOUNDCARE 08:25 | PROVIDERS: ATTEND Family Medicine | DX: Z04.2 Encounter for examination and observation following work accident (principal); T22.232A Burn of second degree of left upper arm, initial encounter; S40.852A Superficial foreign body of left upper arm, initial encounter; T31.0 Burns involving less than 10% of body surface; E66.01 Morbid (severe) obesity due to excess calories; Z68.35 Body mass index [BMI] 35.0-35.9, adult | CPT/HCPCS: 16020; G0463 ==

== ENCOUNTER → 2021-04-22 | Outpatient (CLI) | payer OTHER | LOC: WOUNDCARE 15:08 | PROVIDERS: ATTEND Family Medicine | DX: Z04.2 Encounter for examination and observation following work accident (principal); T22.20XA Burn of second degree of shoulder and upper limb, except wrist and hand, unspecified site, initial encounter; T31.0 Burns involving less than 10% of body surface; S40.852A Superficial foreign body of left upper arm, initial encounter; E66.01 Morbid (severe) obesity due to excess calories; Z68.35 Body mass index [BMI] 35.0-35.9, adult | CPT/HCPCS: 16020; G0463 ==

== ENCOUNTER → 2021-05-02 | Outpatient (CLI) | payer OTHER | LOC: WOUNDCARE 09:43 | PROVIDERS: ATTEND Family Medicine | DX: Z04.2 Encounter for examination and observation following work accident (principal); T31.0 Burns involving less than 10% of body surface; T22.232A Burn of second degree of left upper arm, initial encounter; E66.01 Morbid (severe) obesity due to excess calories; S40.852A Superficial foreign body of left upper arm, initial encounter; I96 Gangrene, not elsewhere classified | CPT/HCPCS: 16020; A6212; G0463 ==

== ENCOUNTER → 2021-05-09 | Outpatient (CLI) | payer OTHER | LOC: WOUNDCARE 10:39 | PROVIDERS: ATTEND Family Medicine | DX: Z04.2 Encounter for examination and observation following work accident (principal); T22.232A Burn of second degree of left upper arm, initial encounter; T31.0 Burns involving less than 10% of body surface; E66.01 Morbid (severe) obesity due to excess calories; Z68.35 Body mass index [BMI] 35.0-35.9, adult | CPT/HCPCS: 99212 ==